=== PATIENT | male | born 1955 | race African-American/Black ===

== ENCOUNTER 2017-03-08 12:29 | Emergency (ER) | payer BC, OTHER ==
[2017-03-08 13:38] LABS: ADD MAN DIFF? NO
[2017-03-08 13:41] LABS: BASO # 0.1 x10^3/uL (0.0-0.2); BASO % 1 % (0-3); EOS # 0.4 x10^3/uL (0.0-0.7); EOS % 6 % (0-3); HEMATOCRIT 44.9 % (39.0-53.0); HEMOGLOBIN 15.3 g/dL (13.0-17.5); LYMPH % 30 % (24-48); MEAN CORPUSCULAR HEMOGLOBIN 27 pg (25-35); MEAN CORPUSCULAR HGB CONC 34 g/dL (31-37); MEAN CORPUSCULAR VOLUME 78 fL (79-100); MONO # 0.6 x10^3/uL (0.0-1.1); MONO % 10 % (0-9); NEUT # 3.5 x10^3uL (1.8-7.7); NEUT % 53 % (31-73); PLATELET COUNT 285 x10^3/uL (140-400); RED BLOOD COUNT 5.76 x10^6/uL (4.30-5.70); WHITE BLOOD COUNT 6.6 x10^3/uL (4.0-11.0)
[2017-03-08 13:42] LABS: BILIRUBIN,URINE NEGATIVE (NEG); CLARITY,URINE CLEAR; COLOR,URINE YELLOW; GLUCOSE,URINE NEGATIVE (NEG); NITRITE,URINE NEGATIVE (NEG); PH,URINE 6.5; PROTEIN,URINE NEGATIVE (NEG-TRACE); UROBILINOGEN,URINE 0.2 mg/dL (0.2 mg/dL)
[2017-03-08 13:52] LABS: RBC,URINE 0 /HPF (0-2)
[2017-03-08 13:53] LABS: BACTERIA,URINE 0 /HPF (0-FEW); WBC,URINE 0 /HPF (0-4)
[2017-03-08 13:54] LABS: ANION GAP 9 (6-14); BLOOD UREA NITROGEN 8 mg/dL (8-26); BUN/CREATININE RATIO 10 (6-20); CALCIUM 8.8 mg/dL (8.5-10.1); CARBON DIOXIDE 29 mmol/L (21-32); CHLORIDE 101 mmol/L (98-107); CREATININE 0.8 mg/dL (0.7-1.3); GFR 119.7; GLUCOSE 100 mg/dL (70-99); POTASSIUM 3.5 mmol/L (3.5-5.1); SODIUM 139 mmol/L (136-145)
[2017-03-08 13:59] LABS: ALBUMIN 4.1 g/dL (3.4-5.0); TOTAL PROTEIN 8.3 g/dL (6.4-8.2)
[2017-03-08 14:00] LABS: ALK PHOS 135 U/L (46-116); ALT (SGPT) 21 U/L (16-63); AST (SGOT) 16 U/L (15-37); LIPASE 183 U/L (73-393); TOTAL BILIRUBIN 0.6 mg/dL (0.2-1.0)
[2017-03-08] MEDS: MORPHINE SULFATE 4 MG/ML DISP.SYRIN. IV ×2 (14:11)
== END 2017-03-08 15:27 | disposition home or self-care (01) ==
LOC: ER 12:29
DX: N40.1 Benign prostatic hyperplasia with lower urinary tract symptoms (principal); R35.0 Frequency of micturition; J45.909 Unspecified asthma, uncomplicated; E78.00 Pure hypercholesterolemia, unspecified; I10 Essential (primary) hypertension; G89.29 Other chronic pain; Z87.01 Personal history of pneumonia (recurrent); Z88.0 Allergy status to penicillin; Z88.2 Allergy status to sulfonamides; Z88.8 Allergy status to other drugs, medicaments and biological substances; Z88.5 Allergy status to narcotic agent
CPT/HCPCS: 36415; 74176; 80053; 81001; 83690; 85025; 96374; 99285-25; J2270

== ENCOUNTER → 2017-03-17 | Outpatient (CLI) | payer BC ==
[2017-03-17] MEDS: IOHEXOL 300 MG/ML 100ML VIAL. IV ×2 (12:45)
[2017-03-17] MEDS: IOHEXOL 240 MG/ML 50ML VIAL. PO ×2 (12:45)
== END | disposition home or self-care (01) ==
LOC: CT 11:53
DX: N41.2 Abscess of prostate (principal); M47.816 Spondylosis without myelopathy or radiculopathy, lumbar region; N40.0 Benign prostatic hyperplasia without lower urinary tract symptoms; K57.30 Diverticulosis of large intestine without perforation or abscess without bleeding; I10 Essential (primary) hypertension; I25.10 Atherosclerotic heart disease of native coronary artery without angina pectoris
CPT/HCPCS: 74177; Q9966; Q9967

== ENCOUNTER 2017-08-10 15:51 | Emergency (ER) | payer BC ==
[2017-08-10] MEDS: methylPREDNISolone SOD SUCC PF 125 MG/2 ML VIAL. IM (17:56)
== END 2017-08-10 18:00 | disposition home or self-care (01) ==
LOC: ER 18:00
DX: M25.462 Effusion, left knee (principal); R21 Rash and other nonspecific skin eruption; J45.909 Unspecified asthma, uncomplicated; E78.00 Pure hypercholesterolemia, unspecified; I10 Essential (primary) hypertension; Z79.899 Other long term (current) drug therapy; Z88.0 Allergy status to penicillin; Z88.2 Allergy status to sulfonamides; Z88.5 Allergy status to narcotic agent; Z88.8 Allergy status to other drugs, medicaments and biological substances
CPT/HCPCS: 73562; 93971; 96372; 99284; J2930

== ENCOUNTER → 2017-08-14 | Outpatient (CLI) | payer BC | END | disposition home or self-care (01) | LOC: KCIC MRI 14:17 | DX: S83.241A Other tear of medial meniscus, current injury, right knee, initial encounter (principal); M17.11 Unilateral primary osteoarthritis, right knee; M22.41 Chondromalacia patellae, right knee; M25.461 Effusion, right knee; M71.21 Synovial cyst of popliteal space [Baker], right knee; I10 Essential (primary) hypertension; E78.5 Hyperlipidemia, unspecified; E78.00 Pure hypercholesterolemia, unspecified; J45.909 Unspecified asthma, uncomplicated; X58.XXXA Exposure to other specified factors, initial encounter; Y93.89 Activity, other specified; Y92.89 Other specified places as the place of occurrence of the external cause; Y99.8 Other external cause status | CPT/HCPCS: 73721 ==

== ENCOUNTER 2018-07-14 15:22 | Inpatient (IN) | payer BC ==
[~2018-07-14] VITALS: Ht 177.8 cm; Wt 91.6 kg
[~2018-07-14 15:22] MED LIST: ALBU2.5V8 IH; AMLO5TAB4 PO; ASPI81TA59 PO; BIOT25006 PO; BYSTOLIC10 MG PO; CIPR500T94 PO; CLIN300C3 PO; CYPR4TAB31 PO; DIPH25CA58 PO; FAMO40TA57 PO; HYDR-2761 PO; HYDR-2765 PO; HYDR-3164 PO; LEVO500T59 PO; OXYC1TAB19 PO; PRED-220 PO; PRED20TA PO; RANI150T2 PO; SIMV40TA3 PO; TRAM50TA PO
[2018-07-14] MEDS ORDERED: IV NORMAL SALINE 1000ML BAG 1,000 ML IV ONE (15:45)
[2018-07-14 15:51] LABS: BASO % 0 % (0-3); EOS # 0.7 x10^3/uL (0.0-0.7); EOS % 11 % (0-3); HEMATOCRIT 42.4 % (39.0-53.0); HEMOGLOBIN 14.5 g/dL (13.0-17.5); LYMPH # 2.2 x10^3/uL (1.0-4.8); LYMPH % 35 % (24-48); MEAN CORPUSCULAR HEMOGLOBIN 26 pg (25-35); MEAN CORPUSCULAR HGB CONC 34 g/dL (31-37); MEAN CORPUSCULAR VOLUME 76 fL (79-100); MONO # 0.7 x10^3/uL (0.0-1.1); MONO % 11 % (0-9); NEUT # 2.7 x10^3uL (1.8-7.7); NEUT % 42 % (31-73); PLATELET COUNT 345 x10^3/uL (140-400); RED BLOOD COUNT 5.57 x10^6/uL (4.30-5.70); RED CELL DISTRIBUTION WIDTH 15.1 % (11.5-14.5); WHITE BLOOD COUNT 6.4 x10^3/uL (4.0-11.0)
--- NOTE | 2018-07-14 15:55 | EKG ---
[facility] [address] [place] [address] Test Date: 2018-07-14 Test Time: 15:29:46 Pat Name: JAYASHREE JONES Department: Room: Gender: M Ssis Ssrs Developer: : [id number] Requested By: JOSH LARA Order Number: [id number] Reading MD: Measurements Intervals Midnight Rate: 85 P: 41 [place]: 188 QRS: -13 QRSD: 92 T: 36 QT: 410 QTc: 488 Interpretive Statements SINUS RHYTHM LEFTWARD AXIS PROLONGED QT NO SPECIFIC ECG ABNORMALITIES RI6.01 Unconfirmed report No previous ECG available for comparison
--- NOTE | 2018-07-14 16:15 | RAD ---
Chest, PA and Lateral: Technique: PA and lateral views of the chest were obtained. History: Chest tightness. Comparison: None. Findings: The heart size grossly appears unremarkable. Small right apical pneumothorax is evident. Mild right lung base airspace opacities likely atelectasis or infiltrate. Mild elevation of the right hemidiaphragm. IMPRESSION: 1. Small right apical pneumothorax. 2. Mild right lung base airspace opacities likely atelectasis or infiltrate. Helen Weaver in ER was informed at time of dictation. Electronically signed by: Jason Dexter MD (07/14/2018 4:13 PM) [place] [id number]
[2018-07-14 16:19] LABS: CREATININE 0.9 mg/dL (0.7-1.3); GFR 103.8; POTASSIUM 3.1 mmol/L (3.5-5.1)
[2018-07-14 16:25] LABS: ALBUMIN 3.8 g/dL (3.4-5.0); MAGNESIUM 2.2 mg/dL (1.8-2.4); TOTAL BILIRUBIN 0.6 mg/dL (0.2-1.0); TOTAL PROTEIN 7.7 g/dL (6.4-8.2)
[2018-07-14] MEDS ORDERED: CONTRAST GIVEN. MC PRN (16:45)
[2018-07-14] MEDS ORDERED: IOHEXOL 350 MG/ML 100 ML VIAL. IV ONE (17:00)
--- NOTE | 2018-07-14 17:11 | RAD ---
CT ANGIOGRAPHY CHEST Indication: Chest tightness. Left chest pain. Fatigue. Shortness of breath. Symptoms for 2 days. . Technique: After intravenous contrast administration, CT imaging was performed of the chest. MIP reconstructions were obtained. Exposure: One or more of the following individualized dose reduction techniques were utilized for this examination: 1. Automated exposure control 2. Adjustment of the mA and/or kV according to patient size 3. Use of iterative reconstruction technique. No evidence of pulmonary embolism. The thoracic ascending aorta is mildly ectatic at 4 cm transverse. No evidence of gross aortic aneurysm or dissection. The proximal great vessels appear patent. No pericardial effusion. No pleural effusion. Visualized thyroid demonstrates no mass. No significant lymph node enlargement. Tiny subpleural nodule left lung base measures only 3 mm. No evidence of consolidating infiltrate. Mild linear markings in the right base atelectasis or fibrosis. There is extensive elevation right anterior hemidiaphragm and lung base. Most of the right lobe of liver is within the chest. Scans to the upper abdomen are limited by the technique. There is a small 17 mm round structure located just posterior to the stomach. This appears to be separate from the adrenal gland. This may represent just a component of the stomach rather than a separate mass. IMPRESSION: 1. No evidence of pulmonary embolism. 2. Elevation or herniation of the right anterior hemidiaphragm, with most of the right lobe of liver located within the lower chest. 3. Small round structure in the left upper quadrant, probably just represents posterior gastric tissue, particularly as seen on the coronal and sagittal reconstructions. This appears to be separate from the adrenal gland rather than an adrenal mass. Electronically signed by: Vern Gonzalez MD (07/14/2018 5:07 PM) [facility]
--- NOTE | 2018-07-14 17:46 | PHYS DOC ---
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 Pt reports symptoms have been irregular however today symptoms worsened so he came to the ER. Patient states he has less appetite/fluid intake. He reports reg. BMs but states he may have less urine outpt d/t less fluids. Pt denies cough, fever, shortness of air, or swelling. 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 He reports his brother at the age of 5959 years old due to heart attack and paternal/maternal uncles have had MIs. Patient denies any recent injury or falls. Patient took aspirin 325 mg today. Patient reports he drove to [place] on and did have episode of feeling lightheaded while there. Patient states his symptoms started after returning from that trip. Patient denies any flu or cold-like illness. He denies recent hospitalization. Review of Systems Review of Systems Constitutional: Denies fever or chills. Reports gen. fatigue/weakness Eyes: Denies change in visual acuity, redness, or eye pain [] HENT: Denies nasal congestion or sore throat [] Respiratory: Denies cough or shortness of breath [] Cardiovascular: Reports lt side chest tightness/pain- reports feeling heart is having irregular beat GI: Denies abdominal pain, nausea, vomiting, bloody stools or diarrhea. Reports decreased appetite : Denies dysuria or hematuria [] Musculoskeletal: Denies back/neck pain or joint pain [] Integument: Denies rash, swelling or skin lesions [] Neurologic: Denies headache, focal weakness or sensory changes. Reports feeling light headed intermittently Endocrine: Denies polyuria or polydipsia [] All other systems were reviewed and found to be within normal limits, except as documented in this note. Current Medications Current Medications Current Medications Medications (Trade) Dose Ordered Sig/Cj Start Time Stop Time Status Last Admin Dose Admin Sodium Chloride 1,000 ml @ 1,000 mls/hr 1X ONCE 07/14/18 15:45 07/14/18 16:44 DC 07/14/18 15:55 1,000 MLS/HR Allergies Allergies Allergies Coded Allergies Type Severity Reaction Last Updated Verified lisinopril Allergy Severe angioedema 10/06/14 Yes Penicillins Allergy Intermediate 10/06/14 Yes Sulfa (Sulfonamide Antibiotics) Allergy Intermediate 10/06/14 Yes codeine Allergy Intermediate rash 10/06/14 Yes Physical Exam Physical Exam Constitutional: Well developed, well nourished, no acute distress, non-toxic appearance. Fatigued appearance. HENT: Normocephalic, atraumatic, oropharynx moist, no oral exudates, nose nor mal. [] Eyes: Pupils equal, no nystagmus, conjunctiva normal, no discharge. [] Neck: Normal range of motion, no tenderness, supple, no stridor. [] Cardiovascular: Heart rate regular rhythm, no murmur [] Lungs & Thorax: Bilateral breath sounds clear to auscultation- resp. equal/nonlabored. No chest tenderness/crepitus Abdomen: Bowel sounds normal, soft, no tenderness/distention, no masses, no pulsatile masses. [] Skin: Warm, dry, no erythema, no rash. [] Back: No tenderness, no CVA tenderness. Extremities: No tenderness, no cyanosis, no clubbing, ROM intact, no edema. 2+ bilat. radial/posterior tibial and dorsalis pedis Neurologic: Alert and oriented X 3, normal motor function, normal sensory funct ion, no focal deficits noted. [] Psychologic: Affect normal, judgement normal, mood normal. [] Current Patient Data Vital Signs Vital Signs Date Time Temp Pulse Resp B/P (MAP) Pulse Ox O2 Delivery O2 Flow Rate FiO2 07/14/18 15:32 80 18 138/87 (104) 96 Room Air 07/14/18 15:22 98.1 98.1 Lab Values Laboratory Tests Test 07/14/18 15:36 White Blood Count 6.4 x10^3/uL (4.0-11.0) Red Blood Count 5.57 x10^6/uL (4.30-5.70) Hemoglobin 14.5 g/dL (13.0-17.5) Hematocrit 42.4 % (39.0-53.0) Mean Corpuscular Volume 76 fL (79-100) L Mean Corpuscular Hemoglobin 26 pg (25-35) Mean Corpuscular Hemoglobin Concent 34 g/dL (31-37) Red Cell Distribution Width 15.1 % (11.5-14.5) H Platelet Count 345 x10^3/uL (140-400) Neutrophils (%) (Auto) 42 % (31-73) Lymphocytes (%) (Auto) 35 % (24-48) Monocytes (%) (Auto) 11 % (0-9) H Eosinophils (%) (Auto) 11 % (0-3) H Basophils (%) (Auto) 0 % (0-3) Neutrophils # (Auto) 2.7 x10^3uL (1.8-7.7) Lymphocytes # (Auto) 2.2 x10^3/uL (1.0-4.8) Monocytes # (Auto) 0.7 x10^3/uL (0.0-1.1) Eosinophils # (Auto) 0.7 x10^3/uL (0.0-0.7) Basophils # (Auto) 0.0 x10^3/uL (0.0-0.2) Sodium Level 140 mmol/L (136-145) Potassium Level 3.1 mmol/L (3.5-5.1) L Chloride Level 102 mmol/L (98-107) Carbon Dioxide Level 28 mmol/L (21-32) Anion Gap 10 (6-14) Blood Urea Nitrogen 11 mg/dL (8-26) Creatinine 0.9 mg/dL (0.7-1.3) Estimated GFR (Cockcroft-Gault) 103.8 BUN/Creatinine Ratio 12 (6-20) Glucose Level 98 mg/dL (70-99) Calcium Level 9.0 mg/dL (8.5-10.1) Magnesium Level 2.2 mg/dL (1.8-2.4) Total Bilirubin 0.6 mg/dL (0.2-1.0) Aspartate Amino Transferase (AST) 16 U/L (15-37) Alanine Aminotransferase (ALT) 17 U/L (16-63) Alkaline Phosphatase 120 U/L (46-116) H Troponin I Quantitative < 0.017 ng/mL (0.000-0.055) MY-Zhf-[id number]-Type Natriuretic Peptide 58 pg/mL (0-124) Total Protein 7.7 g/dL (6.4-8.2) Albumin 3.8 g/dL (3.4-5.0) Albumin/Globulin Ratio 1.0 (1.0-1.7) Laboratory Tests 07/14/18 15:36 Laboratory Tests 07/14/18 15:36 EKG EKG EKG obtained 07/14/18 at [address] Maguire Sinus rhythm Ltward axis Prolonged QT Rate 85 No STEMI Radiology/Procedures Radiology/Procedures PROCEDURE: CHEST PA & LATERAL Chest, PA and Lateral: Technique: PA and lateral views of the chest were obtained. History: Chest tightness. Comparison: None. Findings: The heart size grossly appears unremarkable. Small right apical pneumothorax is evident. Mild right lung base airspace opacities likely atelectasis or infiltrate. Mild elevation of the right hemidiaphragm. IMPRESSION: 1. Small right apical pneumothorax. 2. Mild right lung base airspace opacities likely atelectasis or infiltrate. Helen Weaver in ER was informed at time of dictation. Electronically signed by: Jason Dexter MD (07/14/2018 4:13 PM) [place] [id number] DICTATED and SIGNED BY: JASON DEXTER MD DATE: 07/14/18 1613 PROCEDURE: CT ANGIOGRAPHY CHEST CT ANGIOGRAPHY CHEST Indication: Chest tightness. Left chest pain. Fatigue. Shortness of breath. Symptoms for 2 days. . Technique: After intravenous contrast administration, CT imaging was performed of the chest. MIP reconstructions were obtained. Exposure: One or more of the following individualized dose reduction techniques were utilized for this examination: 1. Automated exposure control 2. Adjustment of the mA and/or kV according to patient size 3. Use of iterative reconstruction technique. No evidence of pulmonary embolism. The thoracic ascending aorta is mildly ectatic at 4 cm transverse. No evidence of gross aortic aneurysm or dissection. The proximal great vessels appear patent. No pericardial effusion. No pleural effusion. Visualized thyroid demonstrates no mass. No significant lymph node enlargement. Tiny subpleural nodule left lung base measures only 3 mm. No evidence of consolidating infiltrate. Mild linear markings in the right base atelectasis or fibrosis. There is extensive elevation right anterior hemidiaphragm and lung base. Most of the right lobe of liver is within the chest. Scans to the upper abdomen are limited by the technique. There is a small 17 mm round structure located just posterior to the stomach. This appears to be separate from the adrenal gland. This may represent just a component of the stomach rather than a separate mass. IMPRESSION: 1. No evidence of pulmonary embolism. 2. Elevation or herniation of the right anterior hemidiaphragm, with most of the right lobe of liver located within the lower chest. 3. Small round structure in the left upper quadrant, probably just represents posterior gastric tissue, particularly as seen on the coronal and sagittal reconstructions. This appears to be separate from the adrenal gland rather than an adrenal mass. Electronically signed by: Vern Gonzalez MD (07/14/2018 5:07 PM) [facility] DICTATED and SIGNED BY: VERN GONZALEZ MD DATE: 07/14/18 2592 Course & Med Decision Making Course & Med Decision Making Pertinent Labs and Imaging studies reviewed. (See chart for details) 1545: Spoke with Dr. Ryan, hospitalist following exam w/pt and discussed pt's case and admit plan. Discussed plans to consult cardiology with admit orders. With patient's recent travel will obtain CTA chest. Dr. Ryan aware labs and imaging pending. 1610: Radiologist called and advised of possible small right apical pneumothorax. Patient had denied any recent trauma or injury. Patient had good bilateral lung sounds on exam. This finding was discussed with Dr. Maguire. Pt's CTA chest is pending. 1740: Pt's Venus arrived bedside and so test results were discussed with patient and his . Discussed CT finding of elevated diaphragm on the right with liver in chest. Pt denies any prior abd. trauma and is denying any abd pain. CT was negative for PE and no pneumothorax reported. Patient CT and tests were reviewed by Dr. Maguire- with liver findings he wanted consult placed with patient's admission for general surgery. Will consult Dr. Mi. Patient's EKG showed no acute ST elevation or STEMI and troponin was negative. Pt's potassium on labs was 3.1 so will order oral replacement. With patient's symptoms worsening today Will add serial cardiac enzymes to admission orders. Patient had taken 325 mg aspirin today. Patient has remained stable while in the ER denying any acute change in condition. Admission plan had been discussed d uring initial exam and patient was agreeable with plan. Heart score 4. Dragon Disclaimer Dragon Disclaimer This electronic medical record was generated, in whole or in part, using a voice recognition dictation system. Departure Departure Impression: Primary Impression: Chest pain Additional Impression: Fatigue Disposition: ADMITTED INPATIENT (Dr. Ryan, hospitalist) Condition: STABLE Referrals: SANDRA NELSON MD (PCP) Problem Qualifiers HELEN LARA APRN Jul 14, 2018 17:45
[2018-07-14 18:05] VITALS: BP 136/89
[2018-07-14] MEDS ORDERED: POTASSIUM CHLORIDE 20 MEQ TABLET.ER. PO ONE ×2 (18:30)
[2018-07-14] MEDS: MORPHINE SULFATE 2 MG/ML VIAL. IV PRN ×2 (18:43→21:18)
--- NOTE | 2018-07-14 19:00 | NUR ---
Patient arrived to room 204 via wheelchair, patient alert and oriented with at bedside, patient complaining of 7/10 chest "tightness," Dr. Ryan and orders received. Patient oriented to room, call light in reach. Will give report to BULMARO Kay to complete admission.
[2018-07-14 19:40] VITALS: BP 120/84
[2018-07-14] MEDS ORDERED: NITROGLYCERIN SUBLINGUAL 0.4 MG BOTTLE OF 25. SL PRN (19:45)
[2018-07-14] MEDS ORDERED: HYDR-2759 PO (20:27)
[2018-07-14] MEDS ORDERED: AMLO10TA8 PO (20:27)
[2018-07-14] MEDS ORDERED: TRIA1CAP3 PO (20:27)
[2018-07-14] MEDS ORDERED: HYDR25TA PO (20:27)
[2018-07-14] MEDS ORDERED: ASPI325T8 PO (20:27)
[2018-07-14] MEDS ORDERED: FEXO180T16 PO (20:27)
[2018-07-14] MEDS ORDERED: ATOR20TA58 PO (20:27)
[2018-07-14] MEDS ORDERED: HYDROcodone/APAP 5/325MG 1 TAB TABLET PO PRN (20:30)
[2018-07-14] MEDS ORDERED: ATORVASTATIN CALCIUM 20 MG TABLET PO SCH (21:00)
[2018-07-14] MEDS: hydrOXYzine 25 MG TABLET PO SCH (21:15)
[2018-07-14] MEDS: ENOXAPARIN 40 MG/0.4 ML SYRINGE. SQ SCH (21:15)
[2018-07-14 22:36] VITALS: BP 114/80
--- NOTE | 2018-07-14 23:05 | HP ---
ADMIT DATE: 07/14/2018 CHIEF COMPLAINT: Chest pressure. HISTORY OF PRESENT ILLNESS: The patient is a pleasant 63-year-old male who presents with chest pain. It has been occurring for 3 days. It is worse with moving. He has some associated generalized fatigue on the left side, pressure like, states his heart beats has been irregular at times. 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 Cardiac disease runs strong in his family. He has got brothers and uncles and I think maybe his dad as well that had coronary disease. Some of them from it. I discussed the case with ER physician. We are going to admit the patient and give him some Lovenox and consult Dr. Gregory. I called Dr. Gregory. He is aware of the case as well. PAST MEDICAL HISTORY: Asthma, hypertension, hyperlipidemia, pneumonia, previous coronary disease, 50% lesion, but he did not get any stents at that time that was 20 years ago. Mesenteric panniculitis, umbilical hernia, neck fusion, finger amputations, cardiac catheterization. ALLERGIES: PENICILLIN, SULFA, LISINOPRIL AND CODEINE. FAMILY HISTORY: Strong history of coronary disease. SOCIAL HISTORY: Does not drink, smoke or take drugs. MEDICATIONS: Reviewed, please refer to the MRAD. REVIEW OF SYSTEMS: GENERAL: No history of weight change, weakness or fevers. SKIN: No bruising, hair changes or rashes. EYES: No blurred, double or loss of vision. NOSE AND THROAT: No history of nosebleeds, hoarseness or sore throat. HEART: He complains of chest pressure. LUNGS: Denies cough, hemoptysis, wheezing or shortness of breath. GASTROINTESTINAL: Denies changes in appetite, nausea, vomiting, diarrhea or constipation. GENITOURINARY: No history of frequency, urgency, hesitancy or nocturia. NEUROLOGIC: Denies history of numbness, tingling, tremor or weakness. PSYCHIATRIC: No history of panic, anxiety or depression. ENDOCRINE: No history of heat or cold intolerance, polyuria or polydipsia. EXTREMITIES: Denies muscle weakness, joint pain, pain on walking or stiffness. PHYSICAL EXAMINATION: VITAL SIGNS: Temperature afebrile, pulse 92, respirations 18, blood pressure 120/84. GENERAL: He is alert, cooperative, complaining of chest pain. HEART: Normal S1, S2. LUNGS: Clear. ABDOMEN: Soft. EXTREMITIES: No edema. The left hand is partially amputated from an accident at work many years ago in the 70s. ENDOCRINE: No thyromegaly. LYMPHATICS: No cervical nodes. HEMATOPOIETIC: No bruising noted. PSYCHIATRIC: He is a little anxious. LABORATORY DATA: CT of the chest was negative for pulmonary embolism. There is an elevation of the right hemidiaphragm with most of the right lobe of the liver located within the lower chest wall. Chest x-ray: Small apical pneumothorax. Mid right lung airspace opacities, likely an infiltrate or atelectasis. Troponin is 0. Hematology is normal. Potassium is low at 3.1. ASSESSMENT AND PLAN: Chest pain, rule out coronary disease with incidental finding of right lobe of the liver in the chest wall and hypokalemia and small apical pneumothorax, possible pneumonia. The patient has been admitted. We will consult Cardiology. We will go ahead and consult Pulmonary as well. Serial enzymes, serial EKGs, asked the nurse to go ahead and give him a dose of Lovenox. I called Dr. Gregory. Frequent labs, cardiac monitoring, serial enzymes, serial EKGs. PROGNOSIS: Guarded. REILLY CORTES DO DR: ARON/carlene JOB#: [id number] / [id number]
[2018-07-15] VITALS (19 sets, daily range): BP systolic 96–131; BP diastolic 61–85
[2018-07-15 05:35] LABS: BASO # 0.1 x10^3/uL (0.0-0.2); BASO % 1 % (0-3); EOS # 0.7 x10^3/uL (0.0-0.7); EOS % 10 % (0-3); HEMATOCRIT 38.6 % (39.0-53.0); HEMOGLOBIN 13.2 g/dL (13.0-17.5); LYMPH % 28 % (24-48); MEAN CORPUSCULAR HEMOGLOBIN 26 pg (25-35); MEAN CORPUSCULAR HGB CONC 34 g/dL (31-37); MEAN CORPUSCULAR VOLUME 77 fL (79-100); MONO # 0.6 x10^3/uL (0.0-1.1); MONO % 9 % (0-9); NEUT # 3.8 x10^3uL (1.8-7.7); NEUT % 53 % (31-73); PLATELET COUNT 318 x10^3/uL (140-400); RED BLOOD COUNT 4.99 x10^6/uL (4.30-5.70); WHITE BLOOD COUNT 7.2 x10^3/uL (4.0-11.0)
[2018-07-15 05:55] LABS: ALBUMIN 3.3 g/dL (3.4-5.0); ALBUMIN/GLOBULIN RATIO 1.1 (1.0-1.7); CALCIUM 8.9 mg/dL (8.5-10.1); CREATININE 0.8 mg/dL (0.7-1.3); GFR 118.9; POTASSIUM 3.3 mmol/L (3.5-5.1); TOTAL BILIRUBIN 0.7 mg/dL (0.2-1.0); TOTAL PROTEIN 6.4 g/dL (6.4-8.2)
[2018-07-15] MEDS ORDERED: POTASSIUM CHLORIDE 20 MEQ TABLET.ER. PO ONE (08:00)
[2018-07-15] MEDS: ASPIRIN 325 MG TABLET PO SCH (08:11)
[2018-07-15] MEDS: ATORVASTATIN CALCIUM 20 MG TABLET PO SCH (08:11)
[2018-07-15] MEDS: TRIAMTERENE/HCTZ 37.5/25MG TABLET. PO SCH (08:11)
[2018-07-15] MEDS: amLODIPine BESYLATE 10 MG TABLET PO SCH (08:12)
[2018-07-15] MEDS: hydrOXYzine 25 MG TABLET PO SCH ×4 (08:12→21:13)
[2018-07-15] MEDS: MORPHINE SULFATE 2 MG/ML VIAL. IV PRN ×5 (08:13→21:13)
[2018-07-15 08:20] LABS: CHOLESTEROL/HDL RATIO 3.5
[2018-07-15] MEDS: CETIRIZINE HCL 10 MG TABLET. PO SCH ×2 (09:00→12:53)
--- NOTE | 2018-07-15 09:14 | PDOC2 ---
GI CONSULT Reason For Consult: Abd pain, abnormal CT HPI: HPI: 63 y/o male admitted through ER. For 3-4 days, has had some left-sided chest "grabbing" and "tightness." Intermittent - noted while at a wedding and while exercising. Associated w/ irregular racing heart, lightheadedness, and fatigue. Also notes his "health watch" for work alerted him that his heart was beating irregularly. Also has some LUQ/left flank pain ("just a pain") that has been constant. Feels bloated w/ decreased appetite. 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 Assumes weight loss. Hasn't stooled in a couple days. No reflux/heartburn, dysphagia, n/v, diarrhea, or bleeding. EGD for epigastric pain and abnormal CT (suggesting paraduodenal or pancreatic inflammation) by Dr. Emma Norwood in 11/2007: chronic gastritis (negative for H. pylori), small gastric diverticulum, minimally prominent vessels in gastric fun dus. Colonoscopy at that time for lower abd pain and chronic constipation showed diverticulosis and external hemorrhoids. No GB, liver, or PUD history. He remembers being told he might have had pancreatitis. 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 Also takes ASA. PMH: PMH: CAD, HTN, asthma, pneumonia, [place] (improved w/ starr loss), HLD, gastric diverticulum, colonic diverticulosis, hemorrhoids, mesenteric panniculitis cervical fusion, TURP, umbilical hernia repair, expl lap w/ biopsy, traumatic amputation of left fingers, heart cath FH: Family History: Cancer (mother - "bowel," brother - liver), Other (father and brother - heart attacks) Social History: Smoke: No ALCOHOL: none (occasionally in the past, now none) Drugs: None ROS: GEN: +fatigue HEENT: Denies blurred vision, sore throat CV: +chest pain RESP: Denies shortness of air, cough GI: Per HPI : Denies hematuria, dysuria ENDO: +weight loss NEURO: +dizziness MSK: Denies weakness, joint pain/swelling SKIN: Denies jaundice, pruritus Vitals: Vitals: Vital Signs Date Time Temp Pulse Resp B/P (MAP) Pulse Ox O2 Delivery O2 Flow Rate FiO2 07/15/18 08:13 14 98 Room Air 07/15/18 08:12 63 127/78 07/15/18 07:25 97.8 97.8 Labs: Labs: Laboratory Tests Test 07/14/18 15:36 07/14/18 21:15 07/15/18 04:00 White Blood Count 6.4 x10^3/uL (4.0-11.0) 7.2 x10^3/uL (4.0-11.0) Red Blood Count 5.57 x10^6/uL (4.30-5.70) 4.99 x10^6/uL (4.30-5.70) Hemoglobin 14.5 g/dL (13.0-17.5) 13.2 g/dL (13.0-17.5) Hematocrit 42.4 % (39.0-53.0) 38.6 % (39.0-53.0) Mean Corpuscular Volume 76 fL (79-100) 77 fL (79-100) Mean Corpuscular Hemoglobin 26 pg (25-35) 26 pg (25-35) Mean Corpuscular Hemoglobin Concent 34 g/dL (31-37) 34 g/dL (31-37) Red Cell Distribution Width 15.1 % (11.5-14.5) 15.0 % (11.5-14.5) Platelet Count 345 x10^3/uL (140-400) 318 x10^3/uL (140-400) Neutrophils (%) (Auto) 42 % (31-73) 53 % (31-73) Lymphocytes (%) (Auto) 35 % (24-48) 28 % (24-48) Monocytes (%) (Auto) 11 % (0-9) 9 % (0-9) Eosinophils (%) (Auto) 11 % (0-3) 10 % (0-3) Basophils (%) (Auto) 0 % (0-3) 1 % (0-3) Neutrophils # (Auto) 2.7 x10^3uL (1.8-7.7) 3.8 x10^3uL (1.8-7.7) Lymphocytes # (Auto) 2.2 x10^3/uL (1.0-4.8) 2.0 x10^3/uL (1.0-4.8) Monocytes # (Auto) 0.7 x10^3/uL (0.0-1.1) 0.6 x10^3/uL (0.0-1.1) Eosinophils # (Auto) 0.7 x10^3/uL (0.0-0.7) 0.7 x10^3/uL (0.0-0.7) Basophils # (Auto) 0.0 x10^3/uL (0.0-0.2) 0.1 x10^3/uL (0.0-0.2) Sodium Level 140 mmol/L (136-145) 141 mmol/L (136-145) Potassium Level 3.1 mmol/L (3.5-5.1) 3.3 mmol/L (3.5-5.1) Chloride Level 102 mmol/L (98-107) 105 mmol/L (98-107) Carbon Dioxide Level 28 mmol/L (21-32) 26 mmol/L (21-32) Anion Gap 10 (6-14) 10 (6-14) Blood Urea Nitrogen 11 mg/dL (8-26) 8 mg/dL (8-26) Creatinine 0.9 mg/dL (0.7-1.3) 0.8 mg/dL (0.7-1.3) Estimated GFR (Cockcroft-Gault) 103.8 118.9 BUN/Creatinine Ratio 12 (6-20) 10 (6-20) Glucose Level 98 mg/dL (70-99) 87 mg/dL (70-99) Calcium Level 9.0 mg/dL (8.5-10.1) 8.9 mg/dL (8.5-10.1) Magnesium Level 2.2 mg/dL (1.8-2.4) Total Bilirubin 0.6 mg/dL (0.2-1.0) 0.7 mg/dL (0.2-1.0) Aspartate Amino Transf (AST/SGOT) 16 U/L (15-37) 18 U/L (15-37) Alanine Aminotransferase (ALT/SGPT) 17 U/L (16-63) 15 U/L (16-63) Alkaline Phosphatase 120 U/L (46-116) 101 U/L (46-116) Troponin I Quantitative < 0.017 ng/mL (0.000-0.055) < 0.017 ng/mL (0.000-0.055) < 0.017 ng/mL (0.000-0.055) OA-Lnn-T-Type Natriuretic Peptide 58 pg/mL (0-124) Total Protein 7.7 g/dL (6.4-8.2) 6.4 g/dL (6.4-8.2) Albumin 3.8 g/dL (3.4-5.0) 3.3 g/dL (3.4-5.0) Albumin/Globulin Ratio 1.0 (1.0-1.7) 1.1 (1.0-1.7) Triglycerides Level 83 mg/dL (0-150) Cholesterol Level 160 mg/dL (0-200) LDL Cholesterol, Calculated 97 mg/dL (0-100) VLDL Cholesterol, Calculated 17 mg/dL (0-40) Non-HDL Cholesterol Calculated 114 mg/dL (0-129) HDL Cholesterol 46 mg/dL (40-60) Cholesterol/HDL Ratio 3.5 Thyroid Stimulating Hormone (TSH) 1.234 uIU/mL (0.358-3.74) Allergies: Coded Allergies: lisinopril (Verified Allergy, Severe, angioedema, 10/06/14) Penicillins (Verified Allergy, Intermediate, 10/06/14) Sulfa (Sulfonamide Antibiotics) (Verified Allergy, Intermediate, 10/06/14) codeine (Verified Allergy, Intermediate, rash, 10/06/14) Medications: Current Medications Medications (Trade) Dose Ordered Sig/Cj Route PRN Reason Start Time Stop Time Status Last Admin Dose Admin Sodium Chloride 1,000 ml @ 1,000 mls/hr 1X ONCE IV 07/14/18 15:45 07/14/18 16:44 DC 07/14/18 15:55 Iohexol (Omnipaque 350 Mg/ml) 100 ml 1X ONCE IV 07/14/18 17:00 07/14/18 17:01 DC 07/14/18 16:52 Morphine Sulfate (Morphine Sulfate) 2 mg PRN Q2HR PRN IV PAIN 07/14/18 18:30 07/15/18 08:13 Potassium Chloride (Klor-Con) 40 meq 1X ONCE PO 07/14/18 18:30 07/14/18 18:37 DC 07/14/18 18:43 Enoxaparin Sodium (Lovenox 40mg Syringe) 40 mg Q24H SQ 07/14/18 21:00 07/14/18 21:15 Nitroglycerin (Nitrostat) 0.4 mg PRN Q5MIN PRN SL CHEST PAIN 07/14/18 19:45 07/14/18 19:45 Amlodipine Besylate (Norvasc) 10 mg DAILY PO 07/15/18 09:00 07/15/18 08:12 Aspirin (Ofelia Aspirin) 325 mg DAILY PO 07/15/18 09:00 07/15/18 08:11 Hydroxyzine HCl (Atarax) 25 mg QID PO 07/14/18 21:00 07/15/18 08:12 Triamterene/HCTZ (Maxzide 37.5/ 25mg) 1 tab DAILY PO 07/15/18 09:00 07/15/18 08:11 Atorvastatin Calcium (Lipitor) 20 mg DAILY08 PO 07/15/18 08:00 07/15/18 08:11 Potassium Chloride (Klor-Con) 40 meq 1X ONCE PO 07/15/18 08:00 07/15/18 08:06 DC 07/15/18 08:10 Imaging: Imaging: CXR 07/14/18 IMPRESSION: 1. Small right apical pneumothorax. 2. Mild right lung base airspace opacities likely atelectasis or infiltrate. Chest CTA IMPRESSION: 1. No evidence of pulmonary embolism. 2. Elevation or herniation of the right anterior hemidiaphragm, with most of the right lobe of liver located within the lower chest. 3. Small round structure in the left upper quadrant, probably just represents posterior gastric tissue, particularly as seen on the coronal and sagittal reconstructions. This appears to be separate from the adrenal gland rather than an adrenal mass. PE: GEN: NAD HEENT: Atraumatic, PERRL LUNGS: CTAB HEART: RRR, ABD: NABS, S/ND, LUQ discomfort wrapping to left flank EXTREMITY: No edema SKIN: No rashes, no jaundice NEURO/PSYCH: A & O 3 A/P: A/P: Left-sided cheat pain, irregular HR, lightheadedness, fatigue LUQ/flank pain, decreased appetite, bloating, ?constipation Microcytosis Abnormal CT - elevation of right anterior hemidiaphragm, small round structure LUQ H/o gastric diverticulum CRC screen - last colonoscopy in 2007 Diverticulosis, hemorrhoids H/o mesenteric panniculitis NSAID use -- CT findings likely related to known gastric diverticulum. Consider EGD when cleared by cardiology. Outpt screening colonoscopy. Check iron profile. Empiric PPI. Miralax. AMBER MCCALL Jul 15, 2018 09:14
[2018-07-15] MEDS ORDERED: methylPREDNISolone SOD SUCC PF 125 MG/2 ML VIAL. IV ONE (09:30)
[2018-07-15] MEDS ORDERED: diphenhydrAMINE 50 MG/ML VIAL IM ONE (09:30)
[2018-07-15] MEDS ORDERED: FAMOTIDINE 20 MG/2 ML VIAL IVP ONE (09:30)
[2018-07-15] MEDS ORDERED: LIDOCAINE 1% PF 2 ML VIAL. ONE (09:31)
[2018-07-15] MEDS ORDERED: IOHEXOL 300 MG/ML 100ML VIAL. ONE (09:32)
[2018-07-15] MEDS ORDERED: HEPARIN for ARTERIAL LINE 1,500 ML ONE (09:32)
[2018-07-15] MEDS ORDERED: MIDAZOLAM HCL/PF 5 MG/5 ML VIAL. ONE (09:38)
[2018-07-15] MEDS ORDERED: NITROGLYCERIN 200 MCG/2 ML SYRINGE FOR CATH/VASC LAB. ONE (09:38)
[2018-07-15] MEDS ORDERED: HEPARIN for IV BOLUS 10,000 UNIT/10 ML VIAL. ONE (09:38)
[2018-07-15] MEDS ORDERED: VERAPAMIL 5 MG/2 ML VIAL. ONE (09:38)
[2018-07-15] MEDS ORDERED: fentaNYL PF VIAL 100 MCG/2 ML VIAL ONE (09:38)
--- NOTE | 2018-07-15 09:39 | PDOC2 ---
DARÍO LUGO NATUROPATHIC PHYSICIAN 07/15/18 0939: CARDIAC CONSULT DATE OF CONSULT Date of Consult DATE: 07/15/18 TIME: 08:44 REASON FOR CONSULT Reason for Consult: Chest pain REFERRING PHYSICIAN Referring Physician: Meg SOURCE Source: Chart review, Patient HISTORY OF PRESENT ILLNESS HISTORY OF PRESENT ILLNESS This is a pleasant 63 yo male admitted for complains of chest pain, fatigue. Reports that he has been having intermittent left chest tightness that radiates to his left shoulder blade. Last week Geraldo he was exercising running in place and about 30 minutes he started having left chest tightness which lasted about 5-6 minutes and associated with palpitations, SOA and dizziness. The other day he was having the same symptoms but this time it was at rest. Over a week ago he was at [place] and he was also having the same symptoms. He has a fitbit which showed that his HR even after exercise was 130s. He had LHC [address] Abraham and told him that he has 40% blockage on 2 of his vessels. No nausea, no recent falls, injury or significant diaphoresis. No hx of VTE or arrhythmias. PAST MEDICAL HISTORY Cardiovascular: HTN, Hyperlipidemia Pulmonary: No pertinent hx CENTRAL NERVOUS SYSTEM: Other (concussion) GI: No pertinent hx Heme/Onc: No pertinent hx Hepatobiliary: No pertinent hx Psych: No pertinent hx Musculoskeletal: Osteoarthritis, Other (left hand traumatic amputation) Rheumatologic: No pertinent hx Infectious disease: No pertinent hx ENT: No pertinent hx Renal/: Benign prostatic enlarg. Endocrine: Diabetes (borderline), Other Dermatology: Eczema, Other (chronic urticaria) PAST SURGICAL HISTORY Past Surgical History: Hernia Repair (umbilical), Other (TURP; cervical fusions) FAMILY HISTORY Family History: Coronary Artery Disease (brother) SOCIAL HISTORY Smoke: No ALCOHOL: none Drugs: None Lives: with Family CURRENT MEDICATIONS CURRENT MEDICATIONS Current Medications Medications (Trade) Dose Ordered Sig/Cj Route PRN Reason Start Time Stop Time Status Last Admin Dose Admin Sodium Chloride 1,000 ml @ 1,000 mls/hr 1X ONCE IV 07/14/18 15:45 07/14/18 16:44 DC 07/14/18 15:55 Iohexol (Omnipaque 350 Mg/ml) 100 ml 1X ONCE IV 07/14/18 17:00 07/14/18 17:01 DC 07/14/18 16:52 Morphine Sulfate (Morphine Sulfate) 2 mg PRN Q2HR PRN IV PAIN 07/14/18 18:30 07/15/18 08:13 Potassium Chloride (Klor-Con) 40 meq 1X ONCE PO 07/14/18 18:30 07/14/18 18:37 DC 07/14/18 18:43 Enoxaparin Sodium (Lovenox 40mg Syringe) 40 mg Q24H SQ 07/14/18 21:00 07/14/18 21:15 Nitroglycerin (Nitrostat) 0.4 mg PRN Q5MIN PRN SL CHEST PAIN 07/14/18 19:45 07/14/18 19:45 Amlodipine Besylate (Norvasc) 10 mg DAILY PO 07/15/18 09:00 07/15/18 08:12 Aspirin (Ofelia Aspirin) 325 mg DAILY PO 07/15/18 09:00 07/15/18 08:11 Hydroxyzine HCl (Atarax) 25 mg QID PO 07/14/18 21:00 07/15/18 08:12 Triamterene/HCTZ (Maxzide 37.5/ 25mg) 1 tab DAILY PO 07/15/18 09:00 07/15/18 08:11 Atorvastatin Calcium (Lipitor) 20 mg DAILY08 PO 07/15/18 08:00 07/15/18 08:11 Potassium Chloride (Klor-Con) 40 meq 1X ONCE PO 07/15/18 08:00 07/15/18 08:06 DC 07/15/18 08:10 ALLERGIES ALLERGIES: Coded Allergies: lisinopril (Verified Allergy, Severe, angioedema, 10/06/14) Penicillins (Verified Allergy, Intermediate, 10/06/14) Sulfa (Sulfonamide Antibiotics) (Verified Allergy, Intermediate, 10/06/14) codeine (Verified Allergy, Intermediate, rash, 10/06/14) ROS Review of System 14 point ROS evaluated with pertinent positives noted per HPI PHYSICAL EXAM General: Alert, Oriented X3, Cooperative, No acute distress HEENT: Atraumatic, Mucous membr. moist/pink Lungs: Clear to auscultation, Normal air movement Heart: Regular rate (SR with PVCs), Normal S1, Normal S2, No murmurs Abdomen: Soft, Other (mild diffuse tenderenss with palpation) Extremities: No cyanosis, No edema Skin: No breakdown, No significant lesion Neuro: Normal speech, Sensation intact Psych/Mental Status: Mental status NL, Mood NL MUSCULOSKELETAL: Osteoarthritic changes both hands VITALS VITALS Vital Signs Date Time Temp Pulse Resp B/P (MAP) Pulse Ox O2 Delivery O2 Flow Rate FiO2 07/15/18 08:13 14 98 Room Air 07/15/18 08:12 63 127/78 07/15/18 07:25 97.8 97.8 LABS Lab: Laboratory Tests Test 07/14/18 15:36 07/14/18 21:15 07/15/18 04:00 White Blood Count 6.4 x10^3/uL (4.0-11.0) 7.2 x10^3/uL (4.0-11.0) Red Blood Count 5.57 x10^6/uL (4.30-5.70) 4.99 x10^6/uL (4.30-5.70) Hemoglobin 14.5 g/dL (13.0-17.5) 13.2 g/dL (13.0-17.5) Hematocrit 42.4 % (39.0-53.0) 38.6 % (39.0-53.0) Mean Corpuscular Volume 76 fL (79-100) 77 fL (79-100) Mean Corpuscular Hemoglobin 26 pg (25-35) 26 pg (25-35) Mean Corpuscular Hemoglobin Concent 34 g/dL (31-37) 34 g/dL (31-37) Red Cell Distribution Width 15.1 % (11.5-14.5) 15.0 % (11.5-14.5) Platelet Count 345 x10^3/uL (140-400) 318 x10^3/uL (140-400) Neutrophils (%) (Auto) 42 % (31-73) 53 % (31-73) Lymphocytes (%) (Auto) 35 % (24-48) 28 % (24-48) Monocytes (%) (Auto) 11 % (0-9) 9 % (0-9) Eosinophils (%) (Auto) 11 % (0-3) 10 % (0-3) Basophils (%) (Auto) 0 % (0-3) 1 % (0-3) Neutrophils # (Auto) 2.7 x10^3uL (1.8-7.7) 3.8 x10^3uL (1.8-7.7) Lymphocytes # (Auto) 2.2 x10^3/uL (1.0-4.8) 2.0 x10^3/uL (1.0-4.8) Monocytes # (Auto) 0.7 x10^3/uL (0.0-1.1) 0.6 x10^3/uL (0.0-1.1) Eosinophils # (Auto) 0.7 x10^3/uL (0.0-0.7) 0.7 x10^3/uL (0.0-0.7) Basophils # (Auto) 0.0 x10^3/uL (0.0-0.2) 0.1 x10^3/uL (0.0-0.2) Sodium Level 140 mmol/L (136-145) 141 mmol/L (136-145) Potassium Level 3.1 mmol/L (3.5-5.1) 3.3 mmol/L (3.5-5.1) Chloride Level 102 mmol/L (98-107) 105 mmol/L (98-107) Carbon Dioxide Level 28 mmol/L (21-32) 26 mmol/L (21-32) Anion Gap 10 (6-14) 10 (6-14) Blood Urea Nitrogen 11 mg/dL (8-26) 8 mg/dL (8-26) Creatinine 0.9 mg/dL (0.7-1.3) 0.8 mg/dL (0.7-1.3) Estimated GFR (Cockcroft-Gault) 103.8 118.9 BUN/Creatinine Ratio 12 (6-20) 10 (6-20) Glucose Level 98 mg/dL (70-99) 87 mg/dL (70-99) Calcium Level 9.0 mg/dL (8.5-10.1) 8.9 mg/dL (8.5-10.1) Magnesium Level 2.2 mg/dL (1.8-2.4) Total Bilirubin 0.6 mg/dL (0.2-1.0) 0.7 mg/dL (0.2-1.0) Aspartate Amino Transf (AST/SGOT) 16 U/L (15-37) 18 U/L (15-37) Alanine Aminotransferase (ALT/SGPT) 17 U/L (16-63) 15 U/L (16-63) Alkaline Phosphatase 120 U/L (46-116) 101 U/L (46-116) Troponin I Quantitative < 0.017 ng/mL (0.000-0.055) < 0.017 ng/mL (0.000-0.055) < 0.017 ng/mL (0.000-0.055) VR-Pgs-J-Type Natriuretic Peptide 58 pg/mL (0-124) Total Protein 7.7 g/dL (6.4-8.2) 6.4 g/dL (6.4-8.2) Albumin 3.8 g/dL (3.4-5.0) 3.3 g/dL (3.4-5.0) Albumin/Globulin Ratio 1.0 (1.0-1.7) 1.1 (1.0-1.7) Triglycerides Level 83 mg/dL (0-150) Cholesterol Level 160 mg/dL (0-200) LDL Cholesterol, Calculated 97 mg/dL (0-100) VLDL Cholesterol, Calculated 17 mg/dL (0-40) Non-HDL Cholesterol Calculated 114 mg/dL (0-129) HDL Cholesterol 46 mg/dL (40-60) Cholesterol/HDL Ratio 3.5 Thyroid Stimulating Hormone (TSH) 1.234 uIU/mL (0.358-3.74) ASSESSMENT/PLAN ASSESSMENT/PLAN 1. Chest pain: UA features 2. Multifocal PVCs with presyncopal spells 3. CAD; reported 40% blockage to 2 of his vessels via C 15 yrs ago. 4. HTN: controlled 5. HLP: controlled 6. Metabolic syndrome 7. Chronic urticaria: generalized 8. Possible IV contrast allergy 9. Hypokalemia 10. Abdominal pain: GI following Recommendations 1. [facility] today, risks and benefits discussed and agreeable to proceed. 2. Premed with solumedrol/benadryl/pepcid pre cath 3. ASA. Continue with secondary prevention and norvasc. 4. [facility]OT as an outpt and will note PVC burden. BB consideration pending C result. 5. Replace K. Check TIMA EDOUARD MD 07/15/18 1235: CARDIAC CONSULT ASSESSMENT/PLAN ASSESSMENT/PLAN Patient seen and examined. Agree with BUSINESS CONTINUITY MANAGEMENT DIRECTOR's assessment and plan. Clinical picture suspicious for unstable angina Myocardial infarction has been ruled out Agree with cardiac catheterization for definitive evaluation Plan for outpatient event monitor to assess PVC burden Thank you for your consultation DARÍO LUGO APRN Jul 15, 2018 09:39 TIMA HOWARD MD Jul 15, 2018 12:35
[2018-07-15] MEDS ORDERED: POLYETHYLENE GLYCOL 3350 17 GM PACKET. PO PRN (10:00)
[2018-07-15] MEDS ORDERED: HEPARIN for IV BOLUS 10,000 UNIT/10 ML VIAL. IART ONE (10:15)
[2018-07-15] MEDS ORDERED: fentaNYL PF VIAL 100 MCG/2 ML VIAL IV ONE (10:15)
[2018-07-15] MEDS ORDERED: VERAPAMIL 5 MG/2 ML VIAL. IART ONE (10:15)
[2018-07-15] MEDS ORDERED: IOHEXOL 300 MG/ML 100ML VIAL. IART ONE (10:15)
[2018-07-15] MEDS ORDERED: MIDAZOLAM HCL/PF 5 MG/5 ML VIAL. IV ONE (10:15)
[2018-07-15] MEDS ORDERED: LIDOCAINE 1% PF 2 ML VIAL. INJ ONE (10:15)
[2018-07-15] MEDS ORDERED: NITROGLYCERIN 200 MCG/2 ML SYRINGE FOR CATH/VASC LAB. IART ONE (10:15)
--- NOTE | 2018-07-15 10:39 | PDOC ---
PULMONARY PROGRESS NOTES Vitals Vital Signs Date Time Temp Pulse Resp B/P (MAP) Pulse Ox O2 Delivery O2 Flow Rate FiO2 07/15/18 10:32 93 131/73 07/15/18 10:28 19 98 Nasal Cannula 2.0 07/15/18 07:25 97.8 97.8 Labs Laboratory Tests Test 07/14/18 15:36 07/14/18 21:15 07/15/18 04:00 White Blood Count 6.4 x10^3/uL (4.0-11.0) 7.2 x10^3/uL (4.0-11.0) Red Blood Count 5.57 x10^6/uL (4.30-5.70) 4.99 x10^6/uL (4.30-5.70) Hemoglobin 14.5 g/dL (13.0-17.5) 13.2 g/dL (13.0-17.5) Hematocrit 42.4 % (39.0-53.0) 38.6 % (39.0-53.0) Mean Corpuscular Volume 76 fL (79-100) 77 fL (79-100) Mean Corpuscular Hemoglobin 26 pg (25-35) 26 pg (25-35) Mean Corpuscular Hemoglobin Concent 34 g/dL (31-37) 34 g/dL (31-37) Red Cell Distribution Width 15.1 % (11.5-14.5) 15.0 % (11.5-14.5) Platelet Count 345 x10^3/uL (140-400) 318 x10^3/uL (140-400) Neutrophils (%) (Auto) 42 % (31-73) 53 % (31-73) Lymphocytes (%) (Auto) 35 % (24-48) 28 % (24-48) Monocytes (%) (Auto) 11 % (0-9) 9 % (0-9) Eosinophils (%) (Auto) 11 % (0-3) 10 % (0-3) Basophils (%) (Auto) 0 % (0-3) 1 % (0-3) Neutrophils # (Auto) 2.7 x10^3uL (1.8-7.7) 3.8 x10^3uL (1.8-7.7) Lymphocytes # (Auto) 2.2 x10^3/uL (1.0-4.8) 2.0 x10^3/uL (1.0-4.8) Monocytes # (Auto) 0.7 x10^3/uL (0.0-1.1) 0.6 x10^3/uL (0.0-1.1) Eosinophils # (Auto) 0.7 x10^3/uL (0.0-0.7) 0.7 x10^3/uL (0.0-0.7) Basophils # (Auto) 0.0 x10^3/uL (0.0-0.2) 0.1 x10^3/uL (0.0-0.2) Sodium Level 140 mmol/L (136-145) 141 mmol/L (136-145) Potassium Level 3.1 mmol/L (3.5-5.1) 3.3 mmol/L (3.5-5.1) Chloride Level 102 mmol/L (98-107) 105 mmol/L (98-107) Carbon Dioxide Level 28 mmol/L (21-32) 26 mmol/L (21-32) Anion Gap 10 (6-14) 10 (6-14) Blood Urea Nitrogen 11 mg/dL (8-26) 8 mg/dL (8-26) Creatinine 0.9 mg/dL (0.7-1.3) 0.8 mg/dL (0.7-1.3) Estimated GFR (Cockcroft-Gault) 103.8 118.9 BUN/Creatinine Ratio 12 (6-20) 10 (6-20) Glucose Level 98 mg/dL (70-99) 87 mg/dL (70-99) Calcium Level 9.0 mg/dL (8.5-10.1) 8.9 mg/dL (8.5-10.1) Magnesium Level 2.2 mg/dL (1.8-2.4) Total Bilirubin 0.6 mg/dL (0.2-1.0) 0.7 mg/dL (0.2-1.0) Aspartate Amino Transf (AST/SGOT) 16 U/L (15-37) 18 U/L (15-37) Alanine Aminotransferase (ALT/SGPT) 17 U/L (16-63) 15 U/L (16-63) Alkaline Phosphatase 120 U/L (46-116) 101 U/L (46-116) Troponin I Quantitative < 0.017 ng/mL (0.000-0.055) < 0.017 ng/mL (0.000-0.055) < 0.017 ng/mL (0.000-0.055) QB-Ukq-V-Type Natriuretic Peptide 58 pg/mL (0-124) Total Protein 7.7 g/dL (6.4-8.2) 6.4 g/dL (6.4-8.2) Albumin 3.8 g/dL (3.4-5.0) 3.3 g/dL (3.4-5.0) Albumin/Globulin Ratio 1.0 (1.0-1.7) 1.1 (1.0-1.7) Triglycerides Level 83 mg/dL (0-150) Cholesterol Level 160 mg/dL (0-200) LDL Cholesterol, Calculated 97 mg/dL (0-100) VLDL Cholesterol, Calculated 17 mg/dL (0-40) Non-HDL Cholesterol Calculated 114 mg/dL (0-129) HDL Cholesterol 46 mg/dL (40-60) Cholesterol/HDL Ratio 3.5 Thyroid Stimulating Hormone (TSH) 1.234 uIU/mL (0.358-3.74) Laboratory Tests Test 07/14/18 15:36 07/14/18 21:15 07/15/18 04:00 White Blood Count 6.4 x10^3/uL (4.0-11.0) 7.2 x10^3/uL (4.0-11.0) Red Blood Count 5.57 x10^6/uL (4.30-5.70) 4.99 x10^6/uL (4.30-5.70) Hemoglobin 14.5 g/dL (13.0-17.5) 13.2 g/dL (13.0-17.5) Hematocrit 42.4 % (39.0-53.0) 38.6 % (39.0-53.0) Mean Corpuscular Volume 76 fL (79-100) 77 fL (79-100) Mean Corpuscular Hemoglobin 26 pg (25-35) 26 pg (25-35) Mean Corpuscular Hemoglobin Concent 34 g/dL (31-37) 34 g/dL (31-37) Red Cell Distribution Width 15.1 % (11.5-14.5) 15.0 % (11.5-14.5) Platelet Count 345 x10^3/uL (140-400) 318 x10^3/uL (140-400) Neutrophils (%) (Auto) 42 % (31-73) 53 % (31-73) Lymphocytes (%) (Auto) 35 % (24-48) 28 % (24-48) Monocytes (%) (Auto) 11 % (0-9) 9 % (0-9) Eosinophils (%) (Auto) 11 % (0-3) 10 % (0-3) Basophils (%) (Auto) 0 % (0-3) 1 % (0-3) Neutrophils # (Auto) 2.7 x10^3uL (1.8-7.7) 3.8 x10^3uL (1.8-7.7) Lymphocytes # (Auto) 2.2 x10^3/uL (1.0-4.8) 2.0 x10^3/uL (1.0-4.8) Monocytes # (Auto) 0.7 x10^3/uL (0.0-1.1) 0.6 x10^3/uL (0.0-1.1) Eosinophils # (Auto) 0.7 x10^3/uL (0.0-0.7) 0.7 x10^3/uL (0.0-0.7) Basophils # (Auto) 0.0 x10^3/uL (0.0-0.2) 0.1 x10^3/uL (0.0-0.2) Sodium Level 140 mmol/L (136-145) 141 mmol/L (136-145) Potassium Level 3.1 mmol/L (3.5-5.1) 3.3 mmol/L (3.5-5.1) Chloride Level 102 mmol/L (98-107) 105 mmol/L (98-107) Carbon Dioxide Level 28 mmol/L (21-32) 26 mmol/L (21-32) Anion Gap 10 (6-14) 10 (6-14) Blood Urea Nitrogen 11 mg/dL (8-26) 8 mg/dL (8-26) Creatinine 0.9 mg/dL (0.7-1.3) 0.8 mg/dL (0.7-1.3) Estimated GFR (Cockcroft-Gault) 103.8 118.9 BUN/Creatinine Ratio 12 (6-20) 10 (6-20) Glucose Level 98 mg/dL (70-99) 87 mg/dL (70-99) Calcium Level 9.0 mg/dL (8.5-10.1) 8.9 mg/dL (8.5-10.1) Magnesium Level 2.2 mg/dL (1.8-2.4) Total Bilirubin 0.6 mg/dL (0.2-1.0) 0.7 mg/dL (0.2-1.0) Aspartate Amino Transf (AST/SGOT) 16 U/L (15-37) 18 U/L (15-37) Alanine Aminotransferase (ALT/SGPT) 17 U/L (16-63) 15 U/L (16-63) Alkaline Phosphatase 120 U/L (46-116) 101 U/L (46-116) Troponin I Quantitative < 0.017 ng/mL (0.000-0.055) < 0.017 ng/mL (0.000-0.055) < 0.017 ng/mL (0.000-0.055) SR-Qld-Q-Type Natriuretic Peptide 58 pg/mL (0-124) Total Protein 7.7 g/dL (6.4-8.2) 6.4 g/dL (6.4-8.2) Albumin 3.8 g/dL (3.4-5.0) 3.3 g/dL (3.4-5.0) Albumin/Globulin Ratio 1.0 (1.0-1.7) 1.1 (1.0-1.7) Triglycerides Level 83 mg/dL (0-150) Cholesterol Level 160 mg/dL (0-200) LDL Cholesterol, Calculated 97 mg/dL (0-100) VLDL Cholesterol, Calculated 17 mg/dL (0-40) Non-HDL Cholesterol Calculated 114 mg/dL (0-129) HDL Cholesterol 46 mg/dL (40-60) Cholesterol/HDL Ratio 3.5 Thyroid Stimulating Hormone (TSH) 1.234 uIU/mL (0.358-3.74) Medications Active Scripts Medications Dose Route/Sig Max Daily Dose Days Date Category Hydrocodone-Acetamin 5-325 mg (Hydrocodone/Acetaminophen) 1 Each Tablet 1 Each PO PRN Q4HRS PRN 07/14/18 Reported Fexofenadine Hcl 180 Mg Tablet 180 Mg PO DAILY 07/14/18 Reported Hydroxyzine Hcl 25 Mg Tablet 25 Mg PO QID 07/14/18 Reported Triamterene-Hctz 37.5-25 Mg Cp (Triamterene/Hydrochlorothiazid) 1 Each Capsule 1 Cap PO DAILY 07/14/18 Reported Atorvastatin Calcium 20 Mg Tablet 20 Mg PO HS 07/14/18 Reported Aspirin 325 Mg Tablet 325 Mg PO DAILY 07/14/18 Reported Amlodipine Besylate 10 Mg Tablet 10 Mg PO DAILY 07/14/[address] CHEST IMPRESSION: 1. No evidence of pulmonary embolism. 2. Elevation or herniation of the right anterior hemidiaphragm, with most of the right lobe of liver located within the lower chest. 3. Small round structure in the left upper quadrant, probably just represents posterior gastric tissue, particularly as seen on the coronal and sagittal reconstructions. This appears to be separate from the adrenal gland rather than an adrenal mass. WILLIAM LEWIS MD Jul 15, 2018 10:39
--- NOTE | 2018-07-15 10:55 | CARD ---
MR#: [id number] Date of Study: 07/15/2018 Ordering Physician: DARÍO LUGO, Referring Physician: REILLY CORTES, Tech: RT Joselito (R) OLGA LIDIA APPROVED REPORT Technologist: RT Joselito (R) OLGA LIDIA Nurse: Chiquis Jarquin R.N. Procedure(s) performed: FLUORO TIME: 1.9 MIN DOSE: 56.7 Gycm2 mod sed: 27 min contrast: 96ml LHC, Coronary angiography, Left ventriculography HISTORY : The patient is a 63 year-old male with a history of . INDICATION The indication(s) include : unstable angina . CSHA Clinical Frailty Scale CSHA Clinical Frailty Scale: Managing Well Heart Failure Heart Failure: No PROCEDURE NARRATIVE INFORMED CONSENT: After explaining the risks and benefits of the procedure and alternatives, informed consent was obtained. The patient was brought electively to the cardiac catheterization lab. A timeout was performed confi rming the patient's name, date of , procedure, and site of procedure. All necessary personnel w ere wearing the appropriate protective equipment and radiation monitor devices. (See nursing notes for medications administered). ACCESS: The right wrist was sterilely prepped and draped in the usual fashion. The right wrist was infiltrat ed with 1 mL of 2% lidocaine for subcutaneous anesthesia. A 6 Yi Terumo glide sheath was inserte d into the right radial artery without difficulty. CORONARY ANGIOGRAPHY: Right and left coronary angiography was performed using a 6Fr TIG 4.0 catheter. Left ventricular en d diastolic pressure was obtained with a pigtail catheter and pullback was performed after left ventr iculography. All catheter exchanges and advancements were performed over a guidewire. CLOSURE: At case completion the right radial sheath was removed and a Terumo radial band was applied with 13 m l of air. COMPLICATIONS: The patient tolerated the procedure well and there were no immediate complications. FINDINGS: HEMODYNAMICS: LVEDP 5 mm Hg No gradient on LV to aortic pullback. AO: 128/78 LEFT VENTRICULOGRAM: EF 55% Anterobasal: Normal. Anterolateral: Normal Apical: Normal Diaphragmatic: Normal Posterobasal: Normal CORONARY ANGIOGRAPHY: LM is a long large caliber vessel with mild luminal irregularities. LAD is a large caliber vessel with mild luminal irregularities. Ramus is a moderate caliber vessel with mild luminal irregularities. LCx is a moderate caliber non-dominant vessel with normal angiographic appearance. OM1 has a high take-off and is a moderate caliber vessel with mild luminal irregularities. OM2 is a small to moderate caliber vessel with mild luminal irregularities. RCA is a large caliber dominant vessel with a mid 20% stenosis. RPDA and RPL are small caliber vessels with normal angiographic appearance. Conclusion 1. Normal left sided filling pressures. 2. Normal LV systolic function. EF 55% 3. Mild non-obstructive coronary disease. Recommendations Aggressive Medical Therapy Signed by : Sanju Egan, Electronically Approved : 07/15/2018 10:55:02
--- NOTE | 2018-07-15 12:47 | NUR ---
SS following for discharge planning. SS reviewed pt chart. Pt is from home with spouse and is currently on room air. No discharge needs noted at this time. SS will continue to follow for discharge planning.
[2018-07-15] MEDS: PANTOPRAZOLE 40 MG TABLET.DR. PO SCH (12:52)
[2018-07-15] MEDS: POLYETHYLENE GLYCOL 3350 17 GM PACKET. PO SCH (12:53)
--- NOTE | 2018-07-15 13:46 | PDOC2 ---
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 Endocrine: Diabetes (borderline), Other Dermatology: Eczema, Other (chronic urticaria) Past Surgical History Past Surgical History: Hernia Repair (umbilical), Other (TURP; cervical fusions) Family History Family History: Coronary Artery Disease (brother) Social History No ALCOHOL: none (occasionally in the past, now none) Drugs: None Lives: with Family Current Problem List Problem List Problems Medical Problems: (1) Chest pain Status: Acute (2) Fatigue Status: Acute Current Medications Current Medications Current Medications Sodium Chloride 1,000 ml @ 1,000 mls/hr 1X ONCE IV Last administered on 07/14/18at 15:55; Start 07/14/18 at 15:45; Stop 07/14/18 at 16:44; Status DC Iohexol (Omnipaque 350 Mg/ml) 100 ml 1X ONCE IV Last administered on 07/14/18at 16:52; Start 07/14/18 at 17:00; Stop 07/14/18 at 17:01; Status DC Info (CONTRAST GIVEN -- Rx MONITORING) 1 each PRN DAILY PRN MC SEE COMMENTS; Start 07/14/18 at 16:45; Stop 07/16/18 at 16:44 Potassium Chloride (Klor-Con) 40 meq 1X ONCE PO ; Start 07/14/18 at 18:30; Stop 07/14/18 at 18:31; Status UNV Morphine Sulfate (Morphine Sulfate) 2 mg PRN Q2HR PRN IV PAIN Last administered on 6/6/19at 13:05; Start 07/14/18 at 18:30 Potassium Chloride (Klor-Con) 40 meq 1X ONCE PO Last administered on 07/14/18 18:43; Start 07/14/18 at 18:30; Stop 07/14/18 at 18:37; Status DC Enoxaparin Sodium (Lovenox Per Pharmacy Prophylaxis Dosing) 1 each PRN DAILY PRN MC SEE COMMENTS; Start 07/14/18 at 19:15 Enoxaparin Sodium (Lovenox 40mg Syringe) 40 mg Q24H SQ Last administered on 07/14/18 21:15; Start 07/14/18 at 21:00 Nitroglycerin (Nitrostat) 0.4 mg PRN Q5MIN PRN SL CHEST PAIN Last administered on 07/14/18 19:45; Start 07/14/18 at 19:45 Amlodipine Besylate (Norvasc) 10 mg DAILY PO Last administered on 07/15/18 08:12; Start 07/15/18 at 09:00 Aspirin (Ofelia Aspirin) 325 mg DAILY PO Last administered on 07/15/18 08:11; Start 07/15/18 at 09:00 Atorvastatin Calcium (Lipitor) 20 mg HS PO ; Start 07/14/18 at 21:00; Stop 07/14/18 at 21:23; Status DC Acetaminophen/ Hydrocodone Bitart (Lortab 5/325) 1 tab PRN Q4HRS PRN PO MODERATE PAIN; Start 07/14/18 at 20:30 Hydroxyzine HCl (Atarax) 25 mg QID PO Last administered on 07/15/18 12:53; Start 07/14/18 at 21:00 Cetirizine HCl (ZyrTEC) 10 mg DAILY PO Last administered on 07/15/18 12:53; Start 07/15/18 at 09:00 Triamterene/HCTZ (Maxzide 37.5/ 25mg) 1 tab DAILY PO Last administered on 07/15/18 08:11; Start 07/15/18 at 09:00 Atorvastatin Calcium (Lipitor) 20 mg DAILY08 PO Last administered on 07/15/18 08:11; Start 07/15/18 at 08:00 Potassium Chloride (Klor-Con) 40 meq 1X ONCE PO Last administered on 6/6/19at 08:10; Start 07/15/18 at 08:00; Stop 07/15/18 at 08:06; Status DC Methylprednisolone Sodium Succinate (SOLU-Medrol 125MG VIAL) 125 mg 1X ONCE IV Last administered on 07/15/18at 09:38; Start 07/15/18 at 09:30; Stop 07/15/18 at 09:31; Status DC Diphenhydramine HCl (Benadryl) 25 mg 1X ONCE IM Last administered on 07/15/18at 09:39; Start 07/15/18 at 09:30; Stop 07/15/18 at 09:31; Status DC Famotidine (Pepcid Vial) 20 mg 1X ONCE IVP Last administered on 07/15/18at 09:39; Start 07/15/18 at 09:30; Stop 07/15/18 at 09:31; Status DC Lidocaine HCl (Xylocaine-Mpf 1% 2ml Vial) 2 ml STK-MED ONCE .ROUTE ; Start 07/15/18 at 09:31; Stop 07/15/18 at 09:32; Status DC Iohexol (Omnipaque 300 Mg/ml) 100 ml STK-MED ONCE .ROUTE ; Start 07/15/18 at 09:32; Stop 07/15/18 at 09:33; Status DC Heparin Sodium/ Sodium Chloride 1,500 ml @ As Directed STK-MED ONCE .ROUTE ; Start 07/15/18 at 09:32; Stop 07/15/18 at 09:33; Status DC Fentanyl Citrate (Fentanyl 2ml Vial) 100 mcg STK-MED ONCE .ROUTE ; Start 07/15/18 at 09:38; Stop 07/15/18 at 09:39; Status DC Midazolam HCl (Versed) 5 mg STK-MED ONCE .ROUTE ; Start 07/15/18 at 09:38; Stop 07/15/18 at 09:39; Status DC Heparin Sodium (Porcine) (Heparin Sodium) 10,000 unit STK-MED ONCE .ROUTE ; Start 07/15/18 at 09:38; Stop 07/15/18 at 09:39; Status DC Verapamil HCl (Verapamil) 5 mg STK-MED ONCE .ROUTE ; Start 07/15/18 at 09:38; Stop 07/15/18 at 09:39; Status DC Nitroglycerin (Nitroglycerin) 200 mcg STK-MED ONCE .ROUTE ; Start 07/15/18 at 09:38; Stop 07/15/18 at 09:39; Status DC Pantoprazole Sodium (Protonix) 40 mg DAILYAC PO Last administered on 07/15/18at 12:52; Start 07/15/18 at 11:30 Polyethylene Glycol (miraLAX PACKET) 17 gm DAILY PO Last administered on 07/15/18at 12:53; Start 07/15/18 at 11:00 Polyethylene Glycol (miraLAX PACKET) 17 gm PRN DAILY PRN PO CONSTIPATION; Start 07/15/18 at 10:00 Nitroglycerin (Nitroglycerin) 200 mcg 1X ONCE IART Last administered on 07/15/18at 10:31; Start 07/15/18 at 10:15; Stop 07/15/18 at 10:16; Status DC Verapamil HCl (Verapamil) 2.5 mg 1X ONCE IART Last administered on 07/15/18at 10:32; Start 07/15/18 at 10:15; Stop 07/15/18 at 10:16; Status DC Heparin Sodium (Porcine) (Heparin Sodium) 2,500 unit 1X ONCE IART Last adminis tered on 07/15/18at 10:33; Start 07/15/18 at 10:15; Stop 07/15/18 at 10:16; Status DC Heparin Sodium/ Sodium Chloride (HEPARIN for ARTERIAL LINE FLUSH) 1,000 unit 1X ONCE IART Last administered on 07/15/18at 10:27; Start 07/15/18 at 10:15; Stop 07/15/18 at 10:16; Status DC Heparin Sodium/ Sodium Chloride (HEPARIN for ARTERIAL LINE FLUSH) 1,000 unit 1X ONCE IART Last administered on 07/15/18at 10:27; Start 07/15/18 at 10:15; Stop 07/15/18 at 10:16; Status DC Midazolam HCl (Versed) 5 mg 1X ONCE IV Last administered on 07/15/18 10:27; Start 07/15/18 at 10:15; Stop 07/15/18 at 10:16; Status DC Fentanyl Citrate (Fentanyl 2ml Vial) 100 mcg 1X ONCE IV Last administered on 07/15/18at 10:28; Start 07/15/18 at 10:15; Stop 07/15/18 at 10:16; Status DC Iohexol (Omnipaque 300 Mg/ml) 100 ml 1X ONCE IART Last administered on 07/15/18at 10:27; Start 07/15/18 at 10:15; Stop 07/15/18 at 10:16; Status DC Lidocaine HCl (Xylocaine-Mpf 1% 2ml Vial) 2 ml 1X ONCE INJ Last administered on 07/15/18at 10:28; Start 07/15/18 at 10:15; Stop 07/15/18 at 10:16; Status DC Active Scripts Active Reported Hydrocodone-Acetamin 5-325 mg (Hydrocodone/Acetaminophen) 1 Each Tablet 1 Each PO PRN Q4HRS PRN Fexofenadine Hcl 180 Mg Tablet 180 Mg PO DAILY Hydroxyzine Hcl 25 Mg Tablet 25 Mg PO QID Triamterene-Hctz 37.5-25 Mg Cp (Triamterene/Hydrochlorothiazid) 1 Each Capsule 1 Cap PO DAILY Atorvastatin Calcium 20 Mg Tablet 20 Mg PO HS Aspirin 325 Mg Tablet 325 Mg PO DAILY Amlodipine Besylate 10 Mg Tablet 10 Mg PO DAILY Allergies Allergies: Coded Allergies: lisinopril (Verified Allergy, Severe, angioedema, 10/06/14) Penicillins (Verified Allergy, Intermediate, 10/06/14) Sulfa (Sulfonamide Antibiotics) (Verified Allergy, Intermediate, 10/06/14) codeine (Verified Allergy, Intermediate, rash, 10/06/14) ROS General: No: Chills, Other (fevers) PSYCHOLOGICAL ROS: No: Anxiety, Depression Eyes: No Blurry vision, No Double vision HEENT: No: Heacaches, Sore Throat Hematological and Lymphatic: No: Bleeding Problems, Blood Clots Respiratory: No: Cough, Shortness of breath Cardiovascular: yes Other (see hpi) Gastrointestinal: Yes Other (see hpi) Genitourinary: No Dysuria, No Hematuria Musculoskeletal: No Muscle Pain Neurological: No Confusion, No Memory Loss Skin: No Pruritus, No Rash Physical Exam General: Alert, Oriented X3, Cooperative, No acute distress HEENT: PERRLA, Mucous membr. moist/pink Lungs: Clear to auscultation, Normal air movement Heart: Regular rate, Normal S1, Normal S2 Abdomen: Soft, Other (ND, some mild TTP LUQ) Extremities: No clubbing, No cyanosis Skin: No rashes, No breakdown Neuro: Normal gait, Normal speech Psych/Mental Status: Mental status NL, Mood NL MUSCULOSKELETAL: No deformity, No swelling Vitals VITALS Vital Signs Date Time Temp Pulse Resp B/P (MAP) Pulse Ox O2 Delivery O2 Flow Rate FiO2 07/15/18 13:05 93 Room Air 2.0 07/15/18 10:57 97.7 74 16 103/70 (81) 97.7 Labs Labs Laboratory Tests Test 07/14/18 15:36 07/14/18 21:15 07/15/18 04:00 07/15/18 11:07 White Blood Count 6.4 x10^3/uL (4.0-11.0) 7.2 x10^3/uL (4.0-11.0) Red Blood Count 5.57 x10^6/uL (4.30-5.70) 4.99 x10^6/uL (4.30-5.70) Hemoglobin 14.5 g/dL (13.0-17.5) 13.2 g/dL (13.0-17.5) Hematocrit 42.4 % (39.0-53.0) 38.6 % (39.0-53.0) Mean Corpuscular Volume 76 fL (79-100) 77 fL (79-100) Mean Corpuscular Hemoglobin 26 pg (25-35) 26 pg (25-35) Mean Corpuscular Hemoglobin Concent 34 g/dL (31-37) 34 g/dL (31-37) Red Cell Distribution Width 15.1 % (11.5-14.5) 15.0 % (11.5-14.5) Platelet Count 345 x10^3/uL (140-400) 318 x10^3/uL (140-400) Neutrophils (%) (Auto) 42 % (31-73) 53 % (31-73) Lymphocytes (%) (Auto) 35 % (24-48) 28 % (24-48) Monocytes (%) (Auto) 11 % (0-9) 9 % (0-9) Eosinophils (%) (Auto) 11 % (0-3) 10 % (0-3) Basophils (%) (Auto) 0 % (0-3) 1 % (0-3) Neutrophils # (Auto) 2.7 x10^3uL (1.8-7.7) 3.8 x10^3uL (1.8-7.7) Lymphocytes # (Auto) 2.2 x10^3/uL (1.0-4.8) 2.0 x10^3/uL (1.0-4.8) Monocytes # (Auto) 0.7 x10^3/uL (0.0-1.1) 0.6 x10^3/uL (0.0-1.1) Eosinophils # (Auto) 0.7 x10^3/uL (0.0-0.7) 0.7 x10^3/uL (0.0-0.7) Basophils # (Auto) 0.0 x10^3/uL (0.0-0.2) 0.1 x10^3/uL (0.0-0.2) Sodium Level 140 mmol/L (136-145) 141 mmol/L (136-145) Potassium Level 3.1 mmol/L (3.5-5.1) 3.3 mmol/L (3.5-5.1) Chloride Level 102 mmol/L (98-107) 105 mmol/L (98-107) Carbon Dioxide Level 28 mmol/L (21-32) 26 mmol/L (21-32) Anion Gap 10 (6-14) 10 (6-14) Blood Urea Nitrogen 11 mg/dL (8-26) 8 mg/dL (8-26) Creatinine 0.9 mg/dL (0.7-1.3) 0.8 mg/dL (0.7-1.3) Estimated GFR (Cockcroft-Gault) 103.8 118.9 BUN/Creatinine Ratio 12 (6-20) 10 (6-20) Glucose Level 98 mg/dL (70-99) 87 mg/dL (70-99) Calcium Level 9.0 mg/dL (8.5-10.1) 8.9 mg/dL (8.5-10.1) Magnesium Level 2.2 mg/dL (1.8-2.4) Total Bilirubin 0.6 mg/dL (0.2-1.0) 0.7 mg/dL (0.2-1.0) Aspartate Amino Transf (AST/SGOT) 16 U/L (15-37) 18 U/L (15-37) Alanine Aminotransferase (ALT/SGPT) 17 U/L (16-63) 15 U/L (16-63) Alkaline Phosphatase 120 U/L (46-116) 101 U/L (46-116) Troponin I Quantitative < 0.017 ng/mL (0.000-0.055) < 0.017 ng/mL (0.000-0.055) < 0.017 ng/mL (0.000-0.055) BX-Ewv-T-Type Natriuretic Peptide 58 pg/mL (0-124) Total Protein 7.7 g/dL (6.4-8.2) 6.4 g/dL (6.4-8.2) Albumin 3.8 g/dL (3.4-5.0) 3.3 g/dL (3.4-5.0) Albumin/Globulin Ratio 1.0 (1.0-1.7) 1.1 (1.0-1.7) Triglycerides Level 83 mg/dL (0-150) Cholesterol Level 160 mg/dL (0-200) LDL Cholesterol, Calculated 97 mg/dL (0-100) VLDL Cholesterol, Calculated 17 mg/dL (0-40) Non-HDL Cholesterol Calculated 114 mg/dL (0-129) HDL Cholesterol 46 mg/dL (40-60) Cholesterol/HDL Ratio 3.5 Thyroid Stimulating Hormone (TSH) 1.234 uIU/mL (0.358-3.74) Iron Level 62 ug/dL (65-175) Total Iron Binding Capacity 299 ug/dL (250-450) Iron Saturation 21 % (15-34) Laboratory Tests Test 07/14/18 15:36 07/14/18 21:15 07/15/18 04:00 07/15/18 11:07 White Blood Count 6.4 x10^3/uL (4.0-11.0) 7.2 x10^3/uL (4.0-11.0) Red Blood Count 5.57 x10^6/uL (4.30-5.70) 4.99 x10^6/uL (4.30-5.70) Hemoglobin 14.5 g/dL (13.0-17.5) 13.2 g/dL (13.0-17.5) Hematocrit 42.4 % (39.0-53.0) 38.6 % (39.0-53.0) Mean Corpuscular Volume 76 fL (79-100) 77 fL (79-100) Mean Corpuscular Hemoglobin 26 pg (25-35) 26 pg (25-35) Mean Corpuscular Hemoglobin Concent 34 g/dL (31-37) 34 g/dL (31-37) Red Cell Distribution Width 15.1 % (11.5-14.5) 15.0 % (11.5-14.5) Platelet Count 345 x10^3/uL (140-400) 318 x10^3/uL (140-400) Neutrophils (%) (Auto) 42 % (31-73) 53 % (31-73) Lymphocytes (%) (Auto) 35 % (24-48) 28 % (24-48) Monocytes (%) (Auto) 11 % (0-9) 9 % (0-9) Eosinophils (%) (Auto) 11 % (0-3) 10 % (0-3) Basophils (%) (Auto) 0 % (0-3) 1 % (0-3) Neutrophils # (Auto) 2.7 x10^3uL (1.8-7.7) 3.8 x10^3uL (1.8-7.7) Lymphocytes # (Auto) 2.2 x10^3/uL (1.0-4.8) 2.0 x10^3/uL (1.0-4.8) Monocytes # (Auto) 0.7 x10^3/uL (0.0-1.1) 0.6 x10^3/uL (0.0-1.1) Eosinophils # (Auto) 0.7 x10^3/uL (0.0-0.7) 0.7 x10^3/uL (0.0-0.7) Basophils # (Auto) 0.0 x10^3/uL (0.0-0.2) 0.1 x10^3/uL (0.0-0.2) Sodium Level 140 mmol/L (136-145) 141 mmol/L (136-145) Potassium Level 3.1 mmol/L (3.5-5.1) 3.3 mmol/L (3.5-5.1) Chloride Level 102 mmol/L (98-107) 105 mmol/L (98-107) Carbon Dioxide Level 28 mmol/L (21-32) 26 mmol/L (21-32) Anion Gap 10 (6-14) 10 (6-14) Blood Urea Nitrogen 11 mg/dL (8-26) 8 mg/dL (8-26) Creatinine 0.9 mg/dL (0.7-1.3) 0.8 mg/dL (0.7-1.3) Estimated GFR (Cockcroft-Gault) 103.8 118.9 BUN/Creatinine Ratio 12 (6-20) 10 (6-20) Glucose Level 98 mg/dL (70-99) 87 mg/dL (70-99) Calcium Level 9.0 mg/dL (8.5-10.1) 8.9 mg/dL (8.5-10.1) Magnesium Level 2.2 mg/dL (1.8-2.4) Total Bilirubin 0.6 mg/dL (0.2-1.0) 0.7 mg/dL (0.2-1.0) Aspartate Amino Transf (AST/SGOT) 16 U/L (15-37) 18 U/L (15-37) Alanine Aminotransferase (ALT/SGPT) 17 U/L (16-63) 15 U/L (16-63) Alkaline Phosphatase 120 U/L (46-116) 101 U/L (46-116) Troponin I Quantitative < 0.017 ng/mL (0.000-0.055) < 0.017 ng/mL (0.000-0.055) < 0.017 ng/mL (0.000-0.055) FP-Pft-E-Type Natriuretic Peptide 58 pg/mL (0-124) Total Protein 7.7 g/dL (6.4-8.2) 6.4 g/dL (6.4-8.2) Albumin 3.8 g/dL (3.4-5.0) 3.3 g/dL (3.4-5.0) Albumin/Globulin Ratio 1.0 (1.0-1.7) 1.1 (1.0-1.7) Triglycerides Level 83 mg/dL (0-150) Cholesterol Level 160 mg/dL (0-200) LDL Cholesterol, Calculated 97 mg/dL (0-100) VLDL Cholesterol, Calculated 17 mg/dL (0-40) Non-HDL Cholesterol Calculated 114 mg/dL (0-129) HDL Cholesterol 46 mg/dL (40-60) Cholesterol/HDL Ratio 3.5 Thyroid Stimulating Hormone (TSH) 1.234 uIU/mL (0.358-3.74) Iron Level 62 ug/dL (65-175) Total Iron Binding Capacity 299 ug/dL (250-450) Iron Saturation 21 % (15-34) Assessment/Plan Assessment/Plan abdominal pain, chest pain hx of mesenteric panniculitis Cath results noted Noted Gi possible EGD In RACHEL OLIVARES APRN Jul 15, 2018 13:46
--- NOTE | 2018-07-15 14:48 | PDOC ---
PROGRESS NOTES Chief Complaint Chief Complaint Chest pain, rule out coronary disease GERD,. hiatal hernia History of Present Illness History of Present Illness plan EGD in AM Vitals Vitals Vital Signs Date Time Temp Pulse Resp B/P (MAP) Pulse Ox O2 Delivery O2 Flow Rate FiO2 07/15/18 13:46 93 Room Air 2.0 07/15/18 10:57 97.7 74 16 103/70 (81) 97.7 Physical Exam General: Alert, Oriented X3, Cooperative, No acute distress Heart: Regular rate, Normal S1, Normal S2 Abdomen: Soft, Other (ND, some mild TTP LUQ) Extremities: No clubbing, No cyanosis Skin: No rashes, No breakdown Labs LABS Laboratory Tests Test 07/14/18 15:36 07/14/18 21:15 07/15/18 04:00 07/15/18 11:07 White Blood Count 6.4 x10^3/uL (4.0-11.0) 7.2 x10^3/uL (4.0-11.0) Red Blood Count 5.57 x10^6/uL (4.30-5.70) 4.99 x10^6/uL (4.30-5.70) Hemoglobin 14.5 g/dL (13.0-17.5) 13.2 g/dL (13.0-17.5) Hematocrit 42.4 % (39.0-53.0) 38.6 % (39.0-53.0) Mean Corpuscular Volume 76 fL (79-100) 77 fL (79-100) Mean Corpuscular Hemoglobin 26 pg (25-35) 26 pg (25-35) Mean Corpuscular Hemoglobin Concent 34 g/dL (31-37) 34 g/dL (31-37) Red Cell Distribution Width 15.1 % (11.5-14.5) 15.0 % (11.5-14.5) Platelet Count 345 x10^3/uL (140-400) 318 x10^3/uL (140-400) Neutrophils (%) (Auto) 42 % (31-73) 53 % (31-73) Lymphocytes (%) (Auto) 35 % (24-48) 28 % (24-48) Monocytes (%) (Auto) 11 % (0-9) 9 % (0-9) Eosinophils (%) (Auto) 11 % (0-3) 10 % (0-3) Basophils (%) (Auto) 0 % (0-3) 1 % (0-3) Neutrophils # (Auto) 2.7 x10^3uL (1.8-7.7) 3.8 x10^3uL (1.8-7.7) Lymphocytes # (Auto) 2.2 x10^3/uL (1.0-4.8) 2.0 x10^3/uL (1.0-4.8) Monocytes # (Auto) 0.7 x10^3/uL (0.0-1.1) 0.6 x10^3/uL (0.0-1.1) Eosinophils # (Auto) 0.7 x10^3/uL (0.0-0.7) 0.7 x10^3/uL (0.0-0.7) Basophils # (Auto) 0.0 x10^3/uL (0.0-0.2) 0.1 x10^3/uL (0.0-0.2) Sodium Level 140 mmol/L (136-145) 141 mmol/L (136-145) Potassium Level 3.1 mmol/L (3.5-5.1) 3.3 mmol/L (3.5-5.1) Chloride Level 102 mmol/L (98-107) 105 mmol/L (98-107) Carbon Dioxide Level 28 mmol/L (21-32) 26 mmol/L (21-32) Anion Gap 10 (6-14) 10 (6-14) Blood Urea Nitrogen 11 mg/dL (8-26) 8 mg/dL (8-26) Creatinine 0.9 mg/dL (0.7-1.3) 0.8 mg/dL (0.7-1.3) Estimated GFR (Cockcroft-Gault) 103.8 118.9 BUN/Creatinine Ratio 12 (6-20) 10 (6-20) Glucose Level 98 mg/dL (70-99) 87 mg/dL (70-99) Calcium Level 9.0 mg/dL (8.5-10.1) 8.9 mg/dL (8.5-10.1) Magnesium Level 2.2 mg/dL (1.8-2.4) Total Bilirubin 0.6 mg/dL (0.2-1.0) 0.7 mg/dL (0.2-1.0) Aspartate Amino Transf (AST/SGOT) 16 U/L (15-37) 18 U/L (15-37) Alanine Aminotransferase (ALT/SGPT) 17 U/L (16-63) 15 U/L (16-63) Alkaline Phosphatase 120 U/L (46-116) 101 U/L (46-116) Troponin I Quantitative < 0.017 ng/mL (0.000-0.055) < 0.017 ng/mL (0.000-0.055) < 0.017 ng/mL (0.000-0.055) JE-Mev-G-Type Natriuretic Peptide 58 pg/mL (0-124) Total Protein 7.7 g/dL (6.4-8.2) 6.4 g/dL (6.4-8.2) Albumin 3.8 g/dL (3.4-5.0) 3.3 g/dL (3.4-5.0) Albumin/Globulin Ratio 1.0 (1.0-1.7) 1.1 (1.0-1.7) Triglycerides Level 83 mg/dL (0-150) Cholesterol Level 160 mg/dL (0-200) LDL Cholesterol, Calculated 97 mg/dL (0-100) VLDL Cholesterol, Calculated 17 mg/dL (0-40) Non-HDL Cholesterol Calculated 114 mg/dL (0-129) HDL Cholesterol 46 mg/dL (40-60) Cholesterol/HDL Ratio 3.5 Thyroid Stimulating Hormone (TSH) 1.234 uIU/mL (0.358-3.74) Iron Level 62 ug/dL (65-175) Total Iron Binding Capacity 299 ug/dL (250-450) Iron Saturation 21 % (15-34) Assessment and Plan Assessmemt and Plan Problems Medical Problems: (1) Chest pain Status: Acute (2) Fatigue Status: Acute Comment Review of Relevant I have reviewed the following items roberto (where applicable) has been applied. Labs Laboratory Tests Test 07/14/18 15:36 07/14/18 21:15 07/15/18 04:00 07/15/18 11:07 White Blood Count 6.4 x10^3/uL (4.0-11.0) 7.2 x10^3/uL (4.0-11.0) Red Blood Count 5.57 x10^6/uL (4.30-5.70) 4.99 x10^6/uL (4.30-5.70) Hemoglobin 14.5 g/dL (13.0-17.5) 13.2 g/dL (13.0-17.5) Hematocrit 42.4 % (39.0-53.0) 38.6 % (39.0-53.0) Mean Corpuscular Volume 76 fL (79-100) 77 fL (79-100) Mean Corpuscular Hemoglobin 26 pg (25-35) 26 pg (25-35) Mean Corpuscular Hemoglobin Concent 34 g/dL (31-37) 34 g/dL (31-37) Red Cell Distribution Width 15.1 % (11.5-14.5) 15.0 % (11.5-14.5) Platelet Count 345 x10^3/uL (140-400) 318 x10^3/uL (140-400) Neutrophils (%) (Auto) 42 % (31-73) 53 % (31-73) Lymphocytes (%) (Auto) 35 % (24-48) 28 % (24-48) Monocytes (%) (Auto) 11 % (0-9) 9 % (0-9) Eosinophils (%) (Auto) 11 % (0-3) 10 % (0-3) Basophils (%) (Auto) 0 % (0-3) 1 % (0-3) Neutrophils # (Auto) 2.7 x10^3uL (1.8-7.7) 3.8 x10^3uL (1.8-7.7) Lymphocytes # (Auto) 2.2 x10^3/uL (1.0-4.8) 2.0 x10^3/uL (1.0-4.8) Monocytes # (Auto) 0.7 x10^3/uL (0.0-1.1) 0.6 x10^3/uL (0.0-1.1) Eosinophils # (Auto) 0.7 x10^3/uL (0.0-0.7) 0.7 x10^3/uL (0.0-0.7) Basophils # (Auto) 0.0 x10^3/uL (0.0-0.2) 0.1 x10^3/uL (0.0-0.2) Sodium Level 140 mmol/L (136-145) 141 mmol/L (136-145) Potassium Level 3.1 mmol/L (3.5-5.1) 3.3 mmol/L (3.5-5.1) Chloride Level 102 mmol/L (98-107) 105 mmol/L (98-107) Carbon Dioxide Level 28 mmol/L (21-32) 26 mmol/L (21-32) Anion Gap 10 (6-14) 10 (6-14) Blood Urea Nitrogen 11 mg/dL (8-26) 8 mg/dL (8-26) Creatinine 0.9 mg/dL (0.7-1.3) 0.8 mg/dL (0.7-1.3) Estimated GFR (Cockcroft-Gault) 103.8 118.9 BUN/Creatinine Ratio 12 (6-20) 10 (6-20) Glucose Level 98 mg/dL (70-99) 87 mg/dL (70-99) Calcium Level 9.0 mg/dL (8.5-10.1) 8.9 mg/dL (8.5-10.1) Magnesium Level 2.2 mg/dL (1.8-2.4) Total Bilirubin 0.6 mg/dL (0.2-1.0) 0.7 mg/dL (0.2-1.0) Aspartate Amino Transf (AST/SGOT) 16 U/L (15-37) 18 U/L (15-37) Alanine Aminotransferase (ALT/SGPT) 17 U/L (16-63) 15 U/L (16-63) Alkaline Phosphatase 120 U/L (46-116) 101 U/L (46-116) Troponin I Quantitative < 0.017 ng/mL (0.000-0.055) < 0.017 ng/mL (0.000-0.055) < 0.017 ng/mL (0.000-0.055) NL-Xaq-R-Type Natriuretic Peptide 58 pg/mL (0-124) Total Protein 7.7 g/dL (6.4-8.2) 6.4 g/dL (6.4-8.2) Albumin 3.8 g/dL (3.4-5.0) 3.3 g/dL (3.4-5.0) Albumin/Globulin Ratio 1.0 (1.0-1.7) 1.1 (1.0-1.7) Triglycerides Level 83 mg/dL (0-150) Cholesterol Level 160 mg/dL (0-200) LDL Cholesterol, Calculated 97 mg/dL (0-100) VLDL Cholesterol, Calculated 17 mg/dL (0-40) Non-HDL Cholesterol Calculated 114 mg/dL (0-129) HDL Cholesterol 46 mg/dL (40-60) Cholesterol/HDL Ratio 3.5 Thyroid Stimulating Hormone (TSH) 1.234 uIU/mL (0.358-3.74) Iron Level 62 ug/dL (65-175) Total Iron Binding Capacity 299 ug/dL (250-450) Iron Saturation 21 % (15-34) Laboratory Tests Test 07/14/18 15:36 07/14/18 21:15 07/15/18 04:00 07/15/18 11:07 White Blood Count 6.4 x10^3/uL (4.0-11.0) 7.2 x10^3/uL (4.0-11.0) Red Blood Count 5.57 x10^6/uL (4.30-5.70) 4.99 x10^6/uL (4.30-5.70) Hemoglobin 14.5 g/dL (13.0-17.5) 13.2 g/dL (13.0-17.5) Hematocrit 42.4 % (39.0-53.0) 38.6 % (39.0-53.0) Mean Corpuscular Volume 76 fL (79-100) 77 fL (79-100) Mean Corpuscular Hemoglobin 26 pg (25-35) 26 pg (25-35) Mean Corpuscular Hemoglobin Concent 34 g/dL (31-37) 34 g/dL (31-37) Red Cell Distribution Width 15.1 % (11.5-14.5) 15.0 % (11.5-14.5) Platelet Count 345 x10^3/uL (140-400) 318 x10^3/uL (140-400) Neutrophils (%) (Auto) 42 % (31-73) 53 % (31-73) Lymphocytes (%) (Auto) 35 % (24-48) 28 % (24-48) Monocytes (%) (Auto) 11 % (0-9) 9 % (0-9) Eosinophils (%) (Auto) 11 % (0-3) 10 % (0-3) Basophils (%) (Auto) 0 % (0-3) 1 % (0-3) Neutrophils # (Auto) 2.7 x10^3uL (1.8-7.7) 3.8 x10^3uL (1.8-7.7) Lymphocytes # (Auto) 2.2 x10^3/uL (1.0-4.8) 2.0 x10^3/uL (1.0-4.8) Monocytes # (Auto) 0.7 x10^3/uL (0.0-1.1) 0.6 x10^3/uL (0.0-1.1) Eosinophils # (Auto) 0.7 x10^3/uL (0.0-0.7) 0.7 x10^3/uL (0.0-0.7) Basophils # (Auto) 0.0 x10^3/uL (0.0-0.2) 0.1 x10^3/uL (0.0-0.2) Sodium Level 140 mmol/L (136-145) 141 mmol/L (136-145) Potassium Level 3.1 mmol/L (3.5-5.1) 3.3 mmol/L (3.5-5.1) Chloride Level 102 mmol/L (98-107) 105 mmol/L (98-107) Carbon Dioxide Level 28 mmol/L (21-32) 26 mmol/L (21-32) Anion Gap 10 (6-14) 10 (6-14) Blood Urea Nitrogen 11 mg/dL (8-26) 8 mg/dL (8-26) Creatinine 0.9 mg/dL (0.7-1.3) 0.8 mg/dL (0.7-1.3) Estimated GFR (Cockcroft-Gault) 103.8 118.9 BUN/Creatinine Ratio 12 (6-20) 10 (6-20) Glucose Level 98 mg/dL (70-99) 87 mg/dL (70-99) Calcium Level 9.0 mg/dL (8.5-10.1) 8.9 mg/dL (8.5-10.1) Magnesium Level 2.2 mg/dL (1.8-2.4) Total Bilirubin 0.6 mg/dL (0.2-1.0) 0.7 mg/dL (0.2-1.0) Aspartate Amino Transf (AST/SGOT) 16 U/L (15-37) 18 U/L (15-37) Alanine Aminotransferase (ALT/SGPT) 17 U/L (16-63) 15 U/L (16-63) Alkaline Phosphatase 120 U/L (46-116) 101 U/L (46-116) Troponin I Quantitative < 0.017 ng/mL (0.000-0.055) < 0.017 ng/mL (0.000-0.055) < 0.017 ng/mL (0.000-0.055) GB-Zcv-L-Type Natriuretic Peptide 58 pg/mL (0-124) Total Protein 7.7 g/dL (6.4-8.2) 6.4 g/dL (6.4-8.2) Albumin 3.8 g/dL (3.4-5.0) 3.3 g/dL (3.4-5.0) Albumin/Globulin Ratio 1.0 (1.0-1.7) 1.1 (1.0-1.7) Triglycerides Level 83 mg/dL (0-150) Cholesterol Level 160 mg/dL (0-200) LDL Cholesterol, Calculated 97 mg/dL (0-100) VLDL Cholesterol, Calculated 17 mg/dL (0-40) Non-HDL Cholesterol Calculated 114 mg/dL (0-129) HDL Cholesterol 46 mg/dL (40-60) Cholesterol/HDL Ratio 3.5 Thyroid Stimulating Hormone (TSH) 1.234 uIU/mL (0.358-3.74) Iron Level 62 ug/dL (65-175) Total Iron Binding Capacity 299 ug/dL (250-450) Iron Saturation 21 % (15-34) Medications Current Medications Sodium Chloride 1,000 ml @ 1,000 mls/hr 1X ONCE IV Last administered on 07/14/18at 15:55; Start 07/14/18 at 15:45; Stop 07/14/18 at 16:44; Status DC Iohexol (Omnipaque 350 Mg/ml) 100 ml 1X ONCE IV Last administered on 07/14/18at 16:52; Start 07/14/18 at 17:00; Stop 07/14/18 at 17:01; Status DC Info (CONTRAST GIVEN -- Rx MONITORING) 1 each PRN DAILY PRN MC SEE COMMENTS; Start 07/14/18 at 16:45; Stop 07/16/18 at 16:44 Potassium Chloride (Klor-Con) 40 meq 1X ONCE PO ; Start 07/14/18 at 18:30; Stop 07/14/18 at 18:31; Status UNV Morphine Sulfate (Morphine Sulfate) 2 mg PRN Q2HR PRN IV PAIN Last administered on 07/15/18at 13:05; Start 07/14/18 at 18:30 Potassium Chloride (Klor-Con) 40 meq 1X ONCE PO Last administered on 07/14/18at 18:43; Start 07/14/18 at 18:30; Stop 07/14/18 at 18:37; Status DC Enoxaparin Sodium (Lovenox Per Pharmacy Prophylaxis Dosing) 1 each PRN DAILY PRN MC SEE COMMENTS; Start 07/14/18 at 19:15 Enoxaparin Sodium (Lovenox 40mg Syringe) 40 mg Q24H SQ Last administered on 07/14/18at 21:15; Start 07/14/18 at 21:00 Nitroglycerin (Nitrostat) 0.4 mg PRN Q5MIN PRN SL CHEST PAIN Last administered on 07/14/18at 19:45; Start 07/14/18 at 19:45 Amlodipine Besylate (Norvasc) 10 mg DAILY PO Last administered on 07/15/18at 08:12; Start 07/15/18 at 09:00 Aspirin (Ofelia Aspirin) 325 mg DAILY PO Last administered on 07/15/18at 08:11; Start 07/15/18 at 09:00 Atorvastatin Calcium (Lipitor) 20 mg HS PO ; Start 07/14/18 at 21:00; Stop 07/14/18 at 21:23; Status DC Acetaminophen/ Hydrocodone Bitart (Lortab 5/325) 1 tab PRN Q4HRS PRN PO MODERATE PAIN; Start 07/14/18 at 20:30 Hydroxyzine HCl (Atarax) 25 mg QID PO Last administered on 07/15/18at 12:53; Start 07/14/18 at 21:00 Cetirizine HCl (ZyrTEC) 10 mg DAILY PO Last administered on 07/15/18at 12:53; Start 07/15/18 at 09:00 Triamterene/HCTZ (Maxzide 37.5/ 25mg) 1 tab DAILY PO Last administered on 07/15/18at 08:11; Start 07/15/18 at 09:00 Atorvastatin Calcium (Lipitor) 20 mg DAILY08 PO Last administered on 07/15/18at 08:11; Start 07/15/18 at 08:00 Potassium Chloride (Klor-Con) 40 meq 1X ONCE PO Last administered on 07/15/18at 08:10; Start 07/15/18 at 08:00; Stop 07/15/18 at 08:06; Status DC Methylprednisolone Sodium Succinate (SOLU-Medrol 125MG VIAL) 125 mg 1X ONCE IV Last administered on 07/15/18at 09:38; Start 07/15/18 at 09:30; Stop 07/15/18 at 09:31; Status DC Diphenhydramine HCl (Benadryl) 25 mg 1X ONCE IM Last administered on 07/15/18at 09:39; Start 07/15/18 at 09:30; Stop 07/15/18 at 09:31; Status DC Famotidine (Pepcid Vial) 20 mg 1X ONCE IVP Last administered on 07/15/18at 09:3 9; Start 07/15/18 at 09:30; Stop 07/15/18 at 09:31; Status DC Lidocaine HCl (Xylocaine-Mpf 1% 2ml Vial) 2 ml STK-MED ONCE .ROUTE ; Start 07/15/18 at 09:31; Stop 07/15/18 at 09:32; Status DC Iohexol (Omnipaque 300 Mg/ml) 100 ml STK-MED ONCE .ROUTE ; Start 07/15/18 at 09:32; Stop 07/15/18 at 09:33; Status DC Heparin Sodium/ Sodium Chloride 1,500 ml @ As Directed STK-MED ONCE .ROUTE ; Start 07/15/18 at 09:32; Stop 07/15/18 at 09:33; Status DC Fentanyl Citrate (Fentanyl 2ml Vial) 100 mcg STK-MED ONCE .ROUTE ; Start 07/15/18 at 09:38; Stop 07/15/18 at 09:39; Status DC Midazolam HCl (Versed) 5 mg STK-MED ONCE .ROUTE ; Start 07/15/18 at 09:38; Stop 07/15/18 at 09:39; Status DC Heparin Sodium (Porcine) (Heparin Sodium) 10,000 unit STK-MED ONCE .ROUTE ; Start 07/15/18 at 09:38; Stop 07/15/18 at 09:39; Status DC Verapamil HCl (Verapamil) 5 mg STK-MED ONCE .ROUTE ; Start 07/15/18 at 09:38; Stop 07/15/18 at 09:39; Status DC Nitroglycerin (Nitroglycerin) 200 mcg STK-MED ONCE .ROUTE ; Start 07/15/18 at 09:38; Stop 07/15/18 at 09:39; Status DC Pantoprazole Sodium (Protonix) 40 mg DAILYAC PO Last administered on 07/15/18at 12:52; Start 07/15/18 at 11:30 Polyethylene Glycol (miraLAX PACKET) 17 gm DAILY PO Last administered on 07/15/18at 12:53; Start 07/15/18 at 11:00 Polyethylene Glycol (miraLAX PACKET) 17 gm PRN DAILY PRN PO CONSTIPATION; Start 07/15/18 at 10:00 Nitroglycerin (Nitroglycerin) 200 mcg 1X ONCE IART Last administered on 07/15/18at 10:31; Start 07/15/18 at 10:15; Stop 07/15/18 at 10:16; Status DC Verapamil HCl (Verapamil) 2.5 mg 1X ONCE IART Last administered on 07/15/18at 10:32; Start 07/15/18 at 10:15; Stop 07/15/18 at 10:16; Status DC Heparin Sodium (Porcine) (Heparin Sodium) 2,500 unit 1X ONCE IART Last administered on 07/15/18at 10:33; Start 07/15/18 at 10:15; Stop 07/15/18 at 10:16; Status DC Heparin Sodium/ Sodium Chloride (HEPARIN for ARTERIAL LINE FLUSH) 1,000 unit 1X ONCE IART Last administered on 07/15/18at 10:27; Start 07/15/18 at 10:15; Stop 07/15/18 at 10:16; Status DC Heparin Sodium/ Sodium Chloride (HEPARIN for ARTERIAL LINE FLUSH) 1,000 unit 1X ONCE IART Last administered on 07/15/18at 10:27; Start 07/15/18 at 10:15; Stop 07/15/18 at 10:16; Status DC Midazolam HCl (Versed) 5 mg 1X ONCE IV Last administered on 07/15/18at 10:27; Start 07/15/18 at 10:15; Stop 07/15/18 at 10:16; Status DC Fentanyl Citrate (Fentanyl 2ml Vial) 100 mcg 1X ONCE IV Last administered on 07/15/18at 10:28; Start 07/15/18 at 10:15; Stop 07/15/18 at 10:16; Status DC Iohexol (Omnipaque 300 Mg/ml) 100 ml 1X ONCE IART Last administered on 07/15/18at 10:27; Start 07/15/18 at 10:15; Stop 07/15/18 at 10:16; Status DC Lidocaine HCl (Xylocaine-Mpf 1% 2ml Vial) 2 ml 1X ONCE INJ Last administered on 07/15/18at 10:28; Start 07/15/18 at 10:15; Stop 07/15/18 at 10:16; Status DC Active Scripts Active Reported Hydrocodone-Acetamin 5-325 mg (Hydrocodone/Acetaminophen) 1 Each Tablet 1 Each PO PRN Q4HRS PRN Fexofenadine Hcl 180 Mg Tablet 180 Mg PO DAILY Hydroxyzine Hcl 25 Mg Tablet 25 Mg PO QID Triamterene-Hctz 37.5-25 Mg Cp (Triamterene/Hydrochlorothiazid) 1 Each Capsule 1 Cap PO DAILY Atorvastatin Calcium 20 Mg Tablet 20 Mg PO HS Aspirin 325 Mg Tablet 325 Mg PO DAILY Amlodipine Besylate 10 Mg Tablet 10 Mg PO DAILY Vitals/I & O Vital Sign - Last 24 Hours 07/14/18 07/14/18 07/14/18 07/14/18 15:22 15:32 16:02 16:32 Temp 98.1 98.1 Pulse 84 80 74 70 Resp 16 18 14 10 B/P (MAP) 132/80 (97) 138/87 (104) 121/81 (94) 118/75 (89) Pulse Ox 95 96 97 96 O2 Delivery Room Air Room Air Room Air Room Air 07/14/18 07/14/18 07/14/18 07/14/18 18:05 18:43 19:40 19:45 Temp 98.3 98.2 98.3 98.2 Pulse 73 69 69 Resp 14 16 16 B/P (MAP) 136/89 (105) 120/84 (96) 120/84 Pulse Ox 95 96 O2 Delivery Room Air Room Air Room Air 07/14/18 07/14/18 07/14/18 07/15/18 20:00 21:18 22:36 02:11 Temp 98.1 98.1 98.1 98.1 Pulse 65 67 Resp 16 16 B/P (MAP) 114/80 (91) 122/77 (92) Pulse Ox 96 96 93 O2 Delivery Room Air Room Air Room Air Room Air 07/15/18 07/15/18 07/15/18 07/15/18 07:25 08:00 08:12 08:13 Temp 97.8 97.8 Pulse 63 63 Resp 14 14 B/P (MAP) 127/78 (94) 127/78 Pulse Ox 98 98 O2 Delivery Room Air Room Air Room Air 07/15/18 07/15/18 07/15/18 07/15/18 10:28 10:32 10:35 10:57 Temp 97.7 97.7 Pulse 93 79 74 Resp 19 16 B/P (MAP) 131/73 103/70 (81) Pulse Ox 98 96 93 O2 Delivery Nasal Cannula Room Air Room Air O2 Flow Rate 2.0 07/15/18 07/15/18 07/15/18 13:00 13:05 13:46 Pulse Ox 93 93 93 O2 Delivery Room Air Room Air Room Air O2 Flow Rate 2.0 2.0 2.0 Intake and Output 07/14/18 07/14/18 07/15/18 15:00 23:00 07:00 Intake Total 1000 ml 240 ml Balance 1000 ml 240 ml CHAR NAJERA MD Jul 15, 2018 14:48
--- NOTE | 2018-07-15 15:41 | CARD ---
MR#: [id number] Date of Study: 07/15/2018 Ordering Physician: DARÍO LUGO, Referring Physician: REILLY CORTES Tech: Sonia Montez APPROVED REPORT EXAM: Two-dimensional and M-mode echocardiogram with Doppler and color Doppler. Other Information Quality : GoodHR: 72bpm Rhythm : NSR INDICATION CAD Chest Pain RISK FACTORS Hypertension Hyperlipidemia Asthma 2D DIMENSIONS RVDd3.7 (2.9-3.5cm)Left Atrium(2D)3.5 (1.6-4.0cm) IVSd1.2 (0.7-1.1cm)Aortic Root(2D)3.4 (2.0-3.7cm) LVDd5.0 (3.9-5.9cm)LVOT Diameter2.2 (1.8-2.4cm) PWd1.1 (0.7-1.1cm)LVDs3.3 (2.5-4.0cm) FS (%) 32.4 %SV70.1 ml LVEF(%)60.5 (>50%) Aortic Valve AoV Peak Calderon.141.8cm/sAoV VTI27.0cm AO Peak GR.8.0mmHgLVOT Peak Calderon.100.0cm/s LVOT VTI 19.12cmAO Mean GR.4mmHg MACARIO (VMAX)1.93op4XQN (VTI)2.65cm2 AI P 1/2 Obpf094iv Mitral Valve MV E Fbuvfcfx07.6cm/sMV DECEL [id number] MV A Ceqriwcq33.2cm/sMV ITB11fa E/A Ratio1.0MVA (PHT)4.04cm2 TDI E/Lateral E'7.0E/Medial E'11.1 Pulmonary Valve PV Peak Mdmpusek63.6cm/sPV Peak Grad.3mmHg Tricuspid Valve TR P. Zuegjjly050ny/sRAP [id number] TR Peak Gr.[id number] LEFT VENTRICLE The left ventricle is normal size. There is mild concentric left ventricular hypertrophy. The left ve ntricular systolic function is normal. The Ejection Fraction is 55-60%. There is normal LV segmental wall motion. The left ventricular diastolic function and filling is normal for age. RIGHT VENTRICLE The right ventricle is normal size. There is normal right ventricular wall thickness. The right ventr icular systolic function is normal. ATRIA The left atrium size is normal. The right atrium size is normal. The interatrial septum is intact wit h no evidence for an atrial septal defect or patent foramen ovale as noted on 2-D or Doppler imaging. AORTIC VALVE The aortic valve is normal in structure and function. Doppler and Color Flow revealed trace aortic re gurgitation. There is no significant aortic valvular stenosis. MITRAL VALVE The mitral valve is normal in structure and function. There is no evidence of mitral valve prolapse. There is no mitral valve stenosis. Doppler and Color-flow revealed trace mitral regurgitation. TRICUSPID VALVE The tricuspid valve is normal in structure and function. Doppler and Color Flow revealed trace tricus pid regurgitation with an estimated PAP of 32 mmHg. There is no tricuspid valve stenosis. PULMONIC VALVE The pulmonary valve is normal in structure and function. Doppler and Color Flow revealed trace pulmon ic valvular regurgitation. GREAT VESSELS The aortic root is normal in size. The IVC is normal in size and collapses >50% with inspiration. PERICARDIAL EFFUSION There is no evidence of significant pericardial effusion. Critical Notification Critical Value: No <Conclusion> The left ventricular systolic function is normal. The Ejection Fraction is 55-60%. There is normal LV segmental wall motion. Trace mitral regurgitation. Trace tricuspid regurgitation with an estimated PAP of 32 mmHg. There is no evidence of significant pericardial effusion. Signed by : Edvin Gregory, Electronically Approved : 07/15/2018 15:41:09
[2018-07-15] MEDS: ENOXAPARIN 40 MG/0.4 ML SYRINGE. SQ SCH (21:13)
[2018-07-16] MEDS: MORPHINE SULFATE 2 MG/ML VIAL. IV PRN ×2 (00:27→07:23)
[2018-07-16 02:57] VITALS: BP 114/74
[2018-07-16 07:00] VITALS: BP 135/86
[2018-07-16] MEDS ORDERED: IV RINGERS,LACTATED 1000ML 1,000 ML IV SCH (07:00)
[2018-07-16] MEDS ORDERED: LIDOCAINE 2% PF 5 ML VIAL. ONE (08:41)
[2018-07-16] MEDS ORDERED: PROPOFOL 20 ML IV ONE (08:41)
--- NOTE | 2018-07-16 09:11 | PDOC4 ---
Operative Note Operative Note EGD Meds propofol per anesthesia Pre-op dx abnl ct scan post-op dx gastric cardia diverticulum Plan resume diet advance activity as tolerated VISH BANG MD Jul 16, 2018 09:11
[2018-07-16] MEDS: POLYETHYLENE GLYCOL 3350 17 GM PACKET. PO SCH (10:54)
[2018-07-16] MEDS: PANTOPRAZOLE 40 MG TABLET.DR. PO SCH (10:55)
[2018-07-16] MEDS: ASPIRIN 325 MG TABLET PO SCH (10:55)
[2018-07-16] MEDS: ATORVASTATIN CALCIUM 20 MG TABLET PO SCH (10:55)
[2018-07-16] MEDS: amLODIPine BESYLATE 10 MG TABLET PO SCH (10:57)
[2018-07-16] MEDS: TRIAMTERENE/HCTZ 37.5/25MG TABLET. PO SCH (10:57)
[2018-07-16] MEDS: CETIRIZINE HCL 10 MG TABLET. PO SCH (10:57)
[2018-07-16] MEDS: hydrOXYzine 25 MG TABLET PO SCH ×2 (10:57→13:00)
--- NOTE | 2018-07-16 11:04 | PDOC ---
PULMONARY PROGRESS NOTES Vitals Vital Signs Date Time Temp Pulse Resp B/P (MAP) Pulse Ox O2 Delivery O2 Flow Rate FiO2 07/16/18 10:57 73 125/77 07/16/18 09:35 16 98 Room Air 07/16/18 09:09 98.7 98.7 07/16/18 07:48 2.0 Labs Laboratory Tests Test 07/14/18 15:36 07/14/18 21:15 07/15/18 04:00 07/15/18 11:07 White Blood Count 6.4 x10^3/uL (4.0-11.0) 7.2 x10^3/uL (4.0-11.0) Red Blood Count 5.57 x10^6/uL (4.30-5.70) 4.99 x10^6/uL (4.30-5.70) Hemoglobin 14.5 g/dL (13.0-17.5) 13.2 g/dL (13.0-17.5) Hematocrit 42.4 % (39.0-53.0) 38.6 % (39.0-53.0) Mean Corpuscular Volume 76 fL (79-100) 77 fL (79-100) Mean Corpuscular Hemoglobin 26 pg (25-35) 26 pg (25-35) Mean Corpuscular Hemoglobin Concent 34 g/dL (31-37) 34 g/dL (31-37) Red Cell Distribution Width 15.1 % (11.5-14.5) 15.0 % (11.5-14.5) Platelet Count 345 x10^3/uL (140-400) 318 x10^3/uL (140-400) Neutrophils (%) (Auto) 42 % (31-73) 53 % (31-73) Lymphocytes (%) (Auto) 35 % (24-48) 28 % (24-48) Monocytes (%) (Auto) 11 % (0-9) 9 % (0-9) Eosinophils (%) (Auto) 11 % (0-3) 10 % (0-3) Basophils (%) (Auto) 0 % (0-3) 1 % (0-3) Neutrophils # (Auto) 2.7 x10^3uL (1.8-7.7) 3.8 x10^3uL (1.8-7.7) Lymphocytes # (Auto) 2.2 x10^3/uL (1.0-4.8) 2.0 x10^3/uL (1.0-4.8) Monocytes # (Auto) 0.7 x10^3/uL (0.0-1.1) 0.6 x10^3/uL (0.0-1.1) Eosinophils # (Auto) 0.7 x10^3/uL (0.0-0.7) 0.7 x10^3/uL (0.0-0.7) Basophils # (Auto) 0.0 x10^3/uL (0.0-0.2) 0.1 x10^3/uL (0.0-0.2) Sodium Level 140 mmol/L (136-145) 141 mmol/L (136-145) Potassium Level 3.1 mmol/L (3.5-5.1) 3.3 mmol/L (3.5-5.1) Chloride Level 102 mmol/L (98-107) 105 mmol/L (98-107) Carbon Dioxide Level 28 mmol/L (21-32) 26 mmol/L (21-32) Anion Gap 10 (6-14) 10 (6-14) Blood Urea Nitrogen 11 mg/dL (8-26) 8 mg/dL (8-26) Creatinine 0.9 mg/dL (0.7-1.3) 0.8 mg/dL (0.7-1.3) Estimated GFR (Cockcroft-Gault) 103.8 118.9 BUN/Creatinine Ratio 12 (6-20) 10 (6-20) Glucose Level 98 mg/dL (70-99) 87 mg/dL (70-99) Calcium Level 9.0 mg/dL (8.5-10.1) 8.9 mg/dL (8.5-10.1) Magnesium Level 2.2 mg/dL (1.8-2.4) Total Bilirubin 0.6 mg/dL (0.2-1.0) 0.7 mg/dL (0.2-1.0) Aspartate Amino Transf (AST/SGOT) 16 U/L (15-37) 18 U/L (15-37) Alanine Aminotransferase (ALT/SGPT) 17 U/L (16-63) 15 U/L (16-63) Alkaline Phosphatase 120 U/L (46-116) 101 U/L (46-116) Troponin I Quantitative < 0.017 ng/mL (0.000-0.055) < 0.017 ng/mL (0.000-0.055) < 0.017 ng/mL (0.000-0.055) LA-Ohb-I-Type Natriuretic Peptide 58 pg/mL (0-124) Total Protein 7.7 g/dL (6.4-8.2) 6.4 g/dL (6.4-8.2) Albumin 3.8 g/dL (3.4-5.0) 3.3 g/dL (3.4-5.0) Albumin/Globulin Ratio 1.0 (1.0-1.7) 1.1 (1.0-1.7) Triglycerides Level 83 mg/dL (0-150) Cholesterol Level 160 mg/dL (0-200) LDL Cholesterol, Calculated 97 mg/dL (0-100) VLDL Cholesterol, Calculated 17 mg/dL (0-40) Non-HDL Cholesterol Calculated 114 mg/dL (0-129) HDL Cholesterol 46 mg/dL (40-60) Cholesterol/HDL Ratio 3.5 Thyroid Stimulating Hormone (TSH) 1.234 uIU/mL (0.358-3.74) Iron Level 62 ug/dL (65-175) Total Iron Binding Capacity 299 ug/dL (250-450) Iron Saturation 21 % (15-34) Laboratory Tests Test 07/15/18 11:07 Iron Level 62 ug/dL (65-175) Total Iron Binding Capacity 299 ug/dL (250-450) Iron Saturation 21 % (15-34) Medications Active Scripts Medications Dose Route/Sig Max Daily Dose Days Date Category Hydrocodone-Acetamin 5-325 mg (Hydrocodone/Acetaminophen) 1 Each Tablet 1 Each PO PRN Q4HRS PRN 07/14/18 Reported Fexofenadine Hcl 180 Mg Tablet 180 Mg PO DAILY 07/14/18 Reported Hydroxyzine Hcl 25 Mg Tablet 25 Mg PO QID 07/14/18 Reported Triamterene-Hctz 37.5-25 Mg Cp (Triamterene/Hydrochlorothiazid) 1 Each Capsule 1 Cap PO DAILY 07/14/18 Reported Atorvastatin Calcium 20 Mg Tablet 20 Mg PO HS 07/14/18 Reported Aspirin 325 Mg Tablet 325 Mg PO DAILY 07/14/18 Reported Amlodipine Besylate 10 Mg Tablet 10 Mg PO DAILY 07/14/[address] CHEST IMPRESSION: 1. No evidence of pulmonary embolism. 2. Elevation or herniation of the right anterior hemidiaphragm, with most of the right lobe of liver located within the lower chest. 3. Small round structure in the left upper quadrant, probably just represents posterior gastric tissue, particularly as seen on the coronal and sagittal reconstructions. This appears to be separate from the adrenal gland rather than an adrenal mass. WILLIAM LEWIS MD Jul 16, 2018 11:04
[2018-07-16 11:27] VITALS: BP 125/77
--- NOTE | 2018-07-16 12:29 | PDOC ---
RACHEL MONTANEZ CASKET ASSEMBLER METAL 07/16/18 1229: SURGICAL PROGRESS NOTE Subjective still with left sided chest, back pain asking if related to liver being pressed into chest Vital Signs Vital Signs Date Time Temp Pulse Resp B/P (MAP) Pulse Ox O2 Delivery O2 Flow Rate FiO2 07/16/18 11:27 97.9 76 18 125/77 (93) 96 Room Air 97.9 07/16/18 07:48 2.0 I&O Intake and Output 07/16/18 07:00 Intake Total 120 ml Balance 120 ml Intake Oral 120 ml # Voids 3 General: Alert, Oriented X3, Cooperative, No acute distress Abdomen: Soft, Other (ND, mild TTP LUQ) Labs Laboratory Tests Test 07/14/18 15:36 07/14/18 21:15 07/15/18 04:00 07/15/18 11:07 White Blood Count 6.4 x10^3/uL (4.0-11.0) 7.2 x10^3/uL (4.0-11.0) Red Blood Count 5.57 x10^6/uL (4.30-5.70) 4.99 x10^6/uL (4.30-5.70) Hemoglobin 14.5 g/dL (13.0-17.5) 13.2 g/dL (13.0-17.5) Hematocrit 42.4 % (39.0-53.0) 38.6 % (39.0-53.0) Mean Corpuscular Volume 76 fL (79-100) 77 fL (79-100) Mean Corpuscular Hemoglobin 26 pg (25-35) 26 pg (25-35) Mean Corpuscular Hemoglobin Concent 34 g/dL (31-37) 34 g/dL (31-37) Red Cell Distribution Width 15.1 % (11.5-14.5) 15.0 % (11.5-14.5) Platelet Count 345 x10^3/uL (140-400) 318 x10^3/uL (140-400) Neutrophils (%) (Auto) 42 % (31-73) 53 % (31-73) Lymphocytes (%) (Auto) 35 % (24-48) 28 % (24-48) Monocytes (%) (Auto) 11 % (0-9) 9 % (0-9) Eosinophils (%) (Auto) 11 % (0-3) 10 % (0-3) Basophils (%) (Auto) 0 % (0-3) 1 % (0-3) Neutrophils # (Auto) 2.7 x10^3uL (1.8-7.7) 3.8 x10^3uL (1.8-7.7) Lymphocytes # (Auto) 2.2 x10^3/uL (1.0-4.8) 2.0 x10^3/uL (1.0-4.8) Monocytes # (Auto) 0.7 x10^3/uL (0.0-1.1) 0.6 x10^3/uL (0.0-1.1) Eosinophils # (Auto) 0.7 x10^3/uL (0.0-0.7) 0.7 x10^3/uL (0.0-0.7) Basophils # (Auto) 0.0 x10^3/uL (0.0-0.2) 0.1 x10^3/uL (0.0-0.2) Sodium Level 140 mmol/L (136-145) 141 mmol/L (136-145) Potassium Level 3.1 mmol/L (3.5-5.1) 3.3 mmol/L (3.5-5.1) Chloride Level 102 mmol/L (98-107) 105 mmol/L (98-107) Carbon Dioxide Level 28 mmol/L (21-32) 26 mmol/L (21-32) Anion Gap 10 (6-14) 10 (6-14) Blood Urea Nitrogen 11 mg/dL (8-26) 8 mg/dL (8-26) Creatinine 0.9 mg/dL (0.7-1.3) 0.8 mg/dL (0.7-1.3) Estimated GFR (Cockcroft-Gault) 103.8 118.9 BUN/Creatinine Ratio 12 (6-20) 10 (6-20) Glucose Level 98 mg/dL (70-99) 87 mg/dL (70-99) Calcium Level 9.0 mg/dL (8.5-10.1) 8.9 mg/dL (8.5-10.1) Magnesium Level 2.2 mg/dL (1.8-2.4) Total Bilirubin 0.6 mg/dL (0.2-1.0) 0.7 mg/dL (0.2-1.0) Aspartate Amino Transf (AST/SGOT) 16 U/L (15-37) 18 U/L (15-37) Alanine Aminotransferase (ALT/SGPT) 17 U/L (16-63) 15 U/L (16-63) Alkaline Phosphatase 120 U/L (46-116) 101 U/L (46-116) Troponin I Quantitative < 0.017 ng/mL (0.000-0.055) < 0.017 ng/mL (0.000-0.055) < 0.017 ng/mL (0.000-0.055) LN-Gbi-R-Type Natriuretic Peptide 58 pg/mL (0-124) Total Protein 7.7 g/dL (6.4-8.2) 6.4 g/dL (6.4-8.2) Albumin 3.8 g/dL (3.4-5.0) 3.3 g/dL (3.4-5.0) Albumin/Globulin Ratio 1.0 (1.0-1.7) 1.1 (1.0-1.7) Triglycerides Level 83 mg/dL (0-150) Cholesterol Level 160 mg/dL (0-200) LDL Cholesterol, Calculated 97 mg/dL (0-100) VLDL Cholesterol, Calculated 17 mg/dL (0-40) Non-HDL Cholesterol Calculated 114 mg/dL (0-129) HDL Cholesterol 46 mg/dL (40-60) Cholesterol/HDL Ratio 3.5 Thyroid Stimulating Hormone (TSH) 1.234 uIU/mL (0.358-3.74) Iron Level 62 ug/dL (65-175) Total Iron Binding Capacity 299 ug/dL (250-450) Iron Saturation 21 % (15-34) Problem List Problems Medical Problems: (1) Chest pain Status: Acute (2) Fatigue Status: Acute Assessment/Plan pain seems unlikely related to liver EGD reviewed will have Dr Yanez review, however no surgical plans RENE YANEZ MD 07/16/18 0260: SURGICAL PROGRESS NOTE Assessment/Plan pt seen, interviewed and examined don't think his chronic diaphragmatic eventration (CXR 2013) is source of his complaints no surgical recs d/w Mr Venerable Thanks for consult can be dismissed from a surgical standpoint will sign off RACHEL MONTANEZ APRN Jul 16, 2018 12:29 RENE YANEZ MD Jul 16, 2018 13:45
--- NOTE | 2018-07-16 13:21 | PDOC ---
DARÍO LUGO MERCHANDISE MARKER 07/16/18 1321: CARDIO Progress Notes Date and Time Date of Service 07/16/2018 Time of Evaluation 1300 Subjective Subjective: No Chest Pain, No shortness of breath, No Palpitations, Other (still has some abd pain) Vitals Vitals Vital Signs Date Time Temp Pulse Resp B/P (MAP) Pulse Ox O2 Delivery O2 Flow Rate FiO2 07/16/18 11:27 97.9 76 18 125/77 (93) 96 Room Air 97.9 07/16/18 07:48 2.0 Weight Weight [ ] Input and Output Intake and Output Intake and Output 07/16/18 06:59 Intake Total 120 ml Balance 120 ml Intake Oral 120 ml # Voids 3 Physical Exam HEENT: Neck Supple W Full Motion Chest: Symmetric LUNGS: Clear to Auscultation Heart: RRR (SR) Abdomen: Soft N/T Extremities: No Edema, No Calf Tenderness Neurology: alert, oriented, follow commands Assessment Assessment 1. Chest pain: LHC revealed nonobstructive CAD. Possibly GI, EGD revealed gastric diverticulum 2. Multifocal PVCs with presyncopal spells: less PVC overnight. EF and WM nml 3. CAD 4. HTN: controlled 5. HLP: controlled 6. Metabolic syndrome 7. Chronic urticaria: generalized 8. Possible IV contrast allergy 9. Hypokalemia 10. Abdominal pain: GI following, post EGD as noted above Recommendations 1. MCOT as an outpt and will reeval need for BB pending PVC burden and differentiate any further arrhythmias for any potential EP referral. 2. ASA. Continue with secondary prevention and norvasc. 4. BMP. replace K as warranted. Follow up in office as scheduled TIMA HOWARD MD 07/16/18 1406: CARDIO Progress Notes Assessment Assessment Patient seen and examined. Agree with [employer] OFFICER's assessment and plan. Cardiac catheterization yesterday showed nonobstructive coronary artery disease Telemetry did not show any significant arrhythmias Plan for event monitor as an outpatient Continue management of abdominal pain per GI team DARÍO LUGO APRN Jul 16, 2018 13:21 TIMA HOWARD MD Jul 16, 2018 14:06
--- NOTE | 2018-07-16 13:49 | PDOC3 ---
Discharge Summary Visit Information Date of Admission: Jul 14, 2018 Date of Discharge: Jul 16, 2018 Final Diagnosis 1. Angina, chest pain, LHC revealed nonobstructive CAD. 2. chest pain, then though to be GERD pain, EGD was benign 3. Multifocal PVCs with presyncopy 4. CAD, htn, lipids 5. . Hypokalemia Problems Medical Problems: (1) Chest pain Status: Acute (2) Fatigue Status: Acute Brief Hospital Course Allergies Allergies Coded Allergies Type Severity Reaction Last Updated Verified lisinopril Allergy Severe angioedema 10/06/14 Yes Penicillins Allergy Intermediate 10/06/14 Yes Sulfa (Sulfonamide Antibiotics) Allergy Intermediate 10/06/14 Yes codeine Allergy Intermediate rash 10/06/14 Yes Vital Signs Vital Signs Date Time Temp Pulse Resp B/P (MAP) Pulse Ox O2 Delivery O2 Flow Rate FiO2 07/16/18 11:27 97.9 76 18 125/77 (93) 96 Room Air 97.9 07/16/18 07:48 2.0 Lab Results Laboratory Tests Test 07/14/18 15:36 07/14/18 21:15 07/15/18 04:00 07/15/18 11:07 White Blood Count 6.4 x10^3/uL (4.0-11.0) 7.2 x10^3/uL (4.0-11.0) Red Blood Count 5.57 x10^6/uL (4.30-5.70) 4.99 x10^6/uL (4.30-5.70) Hemoglobin 14.5 g/dL (13.0-17.5) 13.2 g/dL (13.0-17.5) Hematocrit 42.4 % (39.0-53.0) 38.6 % (39.0-53.0) Mean Corpuscular Volume 76 fL (79-100) 77 fL (79-100) Mean Corpuscular Hemoglobin 26 pg (25-35) 26 pg (25-35) Mean Corpuscular Hemoglobin Concent 34 g/dL (31-37) 34 g/dL (31-37) Red Cell Distribution Width 15.1 % (11.5-14.5) 15.0 % (11.5-14.5) Platelet Count 345 x10^3/uL (140-400) 318 x10^3/uL (140-400) Neutrophils (%) (Auto) 42 % (31-73) 53 % (31-73) Lymphocytes (%) (Auto) 35 % (24-48) 28 % (24-48) Monocytes (%) (Auto) 11 % (0-9) 9 % (0-9) Eosinophils (%) (Auto) 11 % (0-3) 10 % (0-3) Basophils (%) (Auto) 0 % (0-3) 1 % (0-3) Neutrophils # (Auto) 2.7 x10^3uL (1.8-7.7) 3.8 x10^3uL (1.8-7.7) Lymphocytes # (Auto) 2.2 x10^3/uL (1.0-4.8) 2.0 x10^3/uL (1.0-4.8) Monocytes # (Auto) 0.7 x10^3/uL (0.0-1.1) 0.6 x10^3/uL (0.0-1.1) Eosinophils # (Auto) 0.7 x10^3/uL (0.0-0.7) 0.7 x10^3/uL (0.0-0.7) Basophils # (Auto) 0.0 x10^3/uL (0.0-0.2) 0.1 x10^3/uL (0.0-0.2) Sodium Level 140 mmol/L (136-145) 141 mmol/L (136-145) Potassium Level 3.1 mmol/L (3.5-5.1) 3.3 mmol/L (3.5-5.1) Chloride Level 102 mmol/L (98-107) 105 mmol/L (98-107) Carbon Dioxide Level 28 mmol/L (21-32) 26 mmol/L (21-32) Anion Gap 10 (6-14) 10 (6-14) Blood Urea Nitrogen 11 mg/dL (8-26) 8 mg/dL (8-26) Creatinine 0.9 mg/dL (0.7-1.3) 0.8 mg/dL (0.7-1.3) Estimated GFR (Cockcroft-Gault) 103.8 118.9 BUN/Creatinine Ratio 12 (6-20) 10 (6-20) Glucose Level 98 mg/dL (70-99) 87 mg/dL (70-99) Calcium Level 9.0 mg/dL (8.5-10.1) 8.9 mg/dL (8.5-10.1) Magnesium Level 2.2 mg/dL (1.8-2.4) Total Bilirubin 0.6 mg/dL (0.2-1.0) 0.7 mg/dL (0.2-1.0) Aspartate Amino Transf (AST/SGOT) 16 U/L (15-37) 18 U/L (15-37) Alanine Aminotransferase (ALT/SGPT) 17 U/L (16-63) 15 U/L (16-63) Alkaline Phosphatase 120 U/L (46-116) 101 U/L (46-116) Troponin I Quantitative < 0.017 ng/mL (0.000-0.055) < 0.017 ng/mL (0.000-0.055) < 0.017 ng/mL (0.000-0.055) AT-Qes-T-Type Natriuretic Peptide 58 pg/mL (0-124) Total Protein 7.7 g/dL (6.4-8.2) 6.4 g/dL (6.4-8.2) Albumin 3.8 g/dL (3.4-5.0) 3.3 g/dL (3.4-5.0) Albumin/Globulin Ratio 1.0 (1.0-1.7) 1.1 (1.0-1.7) Triglycerides Level 83 mg/dL (0-150) Cholesterol Level 160 mg/dL (0-200) LDL Cholesterol, Calculated 97 mg/dL (0-100) VLDL Cholesterol, Calculated 17 mg/dL (0-40) Non-HDL Cholesterol Calculated 114 mg/dL (0-129) HDL Cholesterol 46 mg/dL (40-60) Cholesterol/HDL Ratio 3.5 Thyroid Stimulating Hormone (TSH) 1.234 uIU/mL (0.358-3.74) Iron Level 62 ug/dL (65-175) Total Iron Binding Capacity 299 ug/dL (250-450) Iron Saturation 21 % (15-34) Brief Hospital Course Mr. Henry is a 63 old admit with Chest pain, sx of angina or GERD, r.o acs EGD done on 07/16. no acute, no ulceration, not much explantion for symptoms CV team to plan MCOT as an outpt and will reeval need for BB pending PVC burden and differentiate any further arrhythmias for any potential EP referral. Discharge Information Condition at Discharge: Improved Follow Up: Weeks Disposition/Orders: D/C to Home Scheduled Amlodipine Besylate (Amlodipine Besylate) 10 Mg Tablet, 10 MG PO DAILY for htn, (Reported) Entered as Reported by: Yusuf Mariano on 07/14/182026 Last Taken: UNKNOWN on Unknown Date & Time Last Action: Continued on 07/14/182026 by Yusuf Mariano Aspirin (Aspirin) 325 Mg Tablet, 325 MG PO DAILY for stroke prevention, (Reported) Entered as Reported by: Yusuf Mariano on 07/14/182026 Last Taken: UNKNOWN on Unknown Date & Time Last Action: Continued on 07/14/182026 by Yusuf Mariano Atorvastatin Calcium (Atorvastatin Calcium) 20 Mg Tablet, 20 MG PO HS for FOR CHOLESTEROL, #30 Ref 0 (Reported) Entered as Reported by: Yusuf Mariano on 07/14/182026 Last Taken: UNKNOWN on Unknown Date & Time Last Action: Continued on 07/14/182026 by Yusuf Mariano Fexofenadine Hcl (Fexofenadine Hcl) 180 Mg Tablet, 180 MG PO DAILY for allergy, (Reported) Entered as Reported by: Yusuf Marinao on 07/14/182026 Last Taken: UNKNOWN on Unknown Date & Time Last Action: Converted on 07/14/182026 by Yusuf Mariano Hydroxyzine Hcl (Hydroxyzine Hcl) 25 Mg Tablet, 25 MG PO QID for anxiety, (Reported) Entered as Reported by: Yusuf Mariano on 07/14/182026 Last Taken: UNKNOWN on Unknown Date & Time Last Action: Continued on 07/14/182026 by Yusuf Mariano Triamterene/Hydrochlorothiazid (Triamterene-Hctz 37.5-25 Mg Cp) 1 Each Capsule, 1 CAP PO DAILY for fluid control, #30 Ref 5 (Reported) Entered as Reported by: Yusuf Mariano on 07/14/182026 Last Taken: UNKNOWN on Unknown Date & Time Last Action: Converted on 07/14/182026 by Yusuf Mariano Scheduled PRN Hydrocodone/Acetaminophen (Hydrocodone-Acetamin 5-325 mg) 1 Each Tablet, 1 EACH PO PRN Q4HRS PRN for PAIN, (Reported) Entered as Reported by: Yusuf Mariano on 07/14/182026 Last Taken: UNKNOWN on Unknown Date & Time Last Action: Continued on 2026 by Yusuf Mariano Patient Instructions Patient Instructions f/u cardiology chest pain could be from PVC , or spasm angina time > 30 min face to face CHAR NAJERA MD Jul 16, 2018 13:49
[2018-07-16 14:26] LABS: CALCIUM 9.7 mg/dL (8.5-10.1); CREATININE 0.9 mg/dL (0.7-1.3); GFR 103.8; POTASSIUM 3.9 mmol/L (3.5-5.1)
[2018-07-16 14:49] VITALS: BP 122/82
[2018-07-16] MEDS ORDERED: Pantoprazole PO (15:36)
--- NOTE | 2018-07-16 16:30 | NUR ---
Discharge Note: JAYASHREE JONES NARDIN Discharge instructions and discharge home medications reviewed with Patient and a copy given. All questions have been answered and understanding verbalized. Prescriptions given to patient. The following instructions and handouts were given: chest pain and post catheterization care Discontinued lines and drains: Peripheral IV intact. Patient discharged to Home or Self Care with Self via Wheelchair
== END 2018-07-16 16:30 | disposition home or self-care (01) | DRG 287 ==
LOC: ER 15:22 → 2 NORTH 15:50
PROVIDERS: ADMIT Internal Medicine; ATTEND Internal Medicine
PROC: 4A023N7 Measurement of Cardiac Sampling and Pressure, Left Heart, Percutaneous Approach (ICD-10-PCS; principal; 2018-07-15)
PROC: B2111ZZ Fluoroscopy of Multiple Coronary Arteries using Low Osmolar Contrast (ICD-10-PCS; 2018-07-15)
PROC: B2151ZZ Fluoroscopy of Left Heart using Low Osmolar Contrast (ICD-10-PCS; 2018-07-15)
PROC: 0DJ08ZZ Inspection of Upper Intestinal Tract, Via Natural or Artificial Opening Endoscopic (ICD-10-PCS; 2018-07-16)
DX: I25.119 Atherosclerotic heart disease of native coronary artery with unspecified angina pectoris (principal); J93.83 Other pneumothorax; E78.00 Pure hypercholesterolemia, unspecified; J45.909 Unspecified asthma, uncomplicated; E78.5 Hyperlipidemia, unspecified; I10 Essential (primary) hypertension; E87.6 Hypokalemia; G47.33 Obstructive sleep apnea (adult) (pediatric); K57.30 Diverticulosis of large intestine without perforation or abscess without bleeding; M19.90 Unspecified osteoarthritis, unspecified site; I49.3 Ventricular premature depolarization; E88.81 Metabolic syndrome and other insulin resistance; L50.9 Urticaria, unspecified; K31.4 Gastric diverticulum; K21.9 Gastro-esophageal reflux disease without esophagitis; Z98.1 Arthrodesis status; Z88.0 Allergy status to penicillin; Z88.2 Allergy status to sulfonamides; Z88.8 Allergy status to other drugs, medicaments and biological substances; Z79.82 Long term (current) use of aspirin; Z80.9 Family history of malignant neoplasm, unspecified; Z82.49 Family history of ischemic heart disease and other diseases of the circulatory system
CPT/HCPCS: 36415; 43235; 71046; 71275; 80048; 80053; 80061; 83540; 83550; 83735; 83880; 84443; 84484; 85025; 93005; 93306; 93458; 96361; 96372; 96374; 96375; 99152; 99153; C1769; C1892; J1200; J1644; J1650; J2001; J2250; J2270; J2704; J2930; J3010; J3490; J7030; J7120; Q9967; 99285-25

== ENCOUNTER 2018-08-21 23:36 | Emergency (ER) | payer BC ==
[~2018-08-21] VITALS: Ht 177.8 cm; Wt 90.7 kg
[~2018-08-21 23:36] MED LIST changes: +AMLO10TA8 PO; +ASPI325T8 PO; +ATOR20TA58 PO; +FEXO180T16 PO; +HYDR-2759 PO; +HYDR25TA PO; +Pantoprazole PO; +TRIA1CAP3 PO
[2018-08-21 23:50] VITALS: BP 132/86
[2018-08-22] MEDS ORDERED: PRED50TA PO (00:05)
[2018-08-22] MEDS ORDERED: VALA1000 PO (00:05)
--- NOTE | 2018-08-22 00:06 | PHYS DOC ---
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 The patient states that the rash is painful. Rates the pain as 7 out of 10 in severity. The patient tried ibuprofen but has not been helping. Review of Systems Review of Systems Constitutional: Denies fever or chills [] Eyes: Denies change in visual acuity, redness, or eye pain [] HENT: Denies nasal congestion or sore throat [] Respiratory: Denies cough or shortness of breath [] Cardiovascular: No additional information not addressed in HPI [] GI: Denies abdominal pain, nausea, vomiting, bloody stools or diarrhea [] : Denies dysuria or hematuria [] Musculoskeletal: Denies back pain or joint pain [] Integument: Has rash on right side of chest. Neurologic: Denies headache, focal weakness or sensory changes [] Endocrine: Denies polyuria or polydipsia [] Complete systems were reviewed and found to be within normal limits, except as documented in this note. Allergies Allergies Allergies Coded Allergies Type Severity Reaction Last Updated Verified lisinopril Allergy Severe angioedema 10/06/14 Yes Penicillins Allergy Intermediate 10/06/14 Yes Sulfa (Sulfonamide Antibiotics) Allergy Intermediate 10/06/14 Yes codeine Allergy Intermediate rash 10/06/14 Yes Physical Exam Physical Exam Constitutional: Well developed, well nourished, no acute distress, non-toxic appearance. [] HENT: Normocephalic, atraumatic, bilateral external ears normal, oropharynx moist, no oral exudates, nose normal. [] Eyes: PERRLA, EOMI, conjunctiva normal, no discharge. [] Neck: Normal range of motion, no tenderness, supple, no stridor. [] Cardiovascular:Heart rate regular rhythm, no murmur [] Lungs & Thorax: Bilateral breath sounds clear to auscultation [] Abdomen: Bowel sounds normal, soft, no tenderness, no masses, no pulsatile masses. [] Skin: vesicular rash on right side of chest following dermatome. Back: No tenderness, no CVA tenderness. [] Extremities: No tenderness, no cyanosis, no clubbing, ROM intact, no edema. [] Neurologic: Alert and oriented X 3, normal motor function, normal sensory function, no focal deficits noted. [] Psychologic: Affect normal, judgement normal, mood normal. [] Current Patient Data Vital Signs Vital Signs Date Time Temp Pulse Resp B/P (MAP) Pulse Ox O2 Delivery O2 Flow Rate FiO2 08/21/18 23:50 98.6 84 16 132/86 (101) 100 Room Air 98.6 EKG EKG [] Radiology/Procedures Radiology/Procedures [] Course & Med Decision Making Course & Med Decision Making Pertinent Labs and Imaging studies reviewed. (See chart for details) Appears to be shingles. Will give [place], Dexamethasone and Valtrex in ER. Will send home on Valtrex and Prednisone. Dragon Disclaimer Dragon Disclaimer This electronic medical record was generated, in whole or in part, using a voice recognition dictation system. Departure Departure Impression: Primary Impression: Shingles Disposition: 01 HOME, SELF-CARE Condition: STABLE Referrals: SANDRA NELSON MD (PCP) Patient Instructions: Shingles Additional Instructions: Thank you for visiting [facility]. We appreciate you trusting us with your care. If any additional problems come up don't hesitate to return to visit us. Please follow up with your primary care provider so they can plan additional care if needed and know about the problem that you had. If symptoms worsen come back to the Emergency Department. Any concerning symptoms that start such as chest pain, shortness of air, weakness or numbness on one side of the body, running high fevers or any other concerning symptoms return to the ER. Please fill your medications at any pharmacy and follow the prescription instructions. Scripts Prednisone (PREDNISONE) 50 Mg Tablet 1 TAB PO DAILY for 5 Days, #5 TAB Prov: MARY MCMAHON APRN 08/22/18 Valacyclovir Hcl (VALACYCLOVIR) 1,000 Mg Tablet 1 TAB PO TID for 7 Days, #21 TAB Prov: MARY MCMAHON APRN 08/22/18 Problem Qualifiers Primary Impression: Shingles Herpes zoster complications: without complications Qualified Codes: B02.9 - Zoster without complications MARY MCMAHON APRN Aug 22, 2018 00:05
[2018-08-22] MEDS ORDERED: valACYclovir 500 MG TABLET. PO ONE (00:30)
[2018-08-22] MEDS ORDERED: HYDROcodone/APAP 5/325MG 1 TAB TABLET PO ONE (00:30)
[2018-08-22] MEDS ORDERED: DEXAMETHASONE 4 MG TABLET PO ONE (00:30)
== END 2018-08-22 00:35 | disposition home or self-care (01) ==
LOC: ER 23:36
DX: B02.9 Zoster without complications (principal); E78.00 Pure hypercholesterolemia, unspecified; J45.909 Unspecified asthma, uncomplicated; I10 Essential (primary) hypertension; Z88.0 Allergy status to penicillin; Z88.5 Allergy status to narcotic agent; Z88.2 Allergy status to sulfonamides; Z88.8 Allergy status to other drugs, medicaments and biological substances
CPT/HCPCS: 99284; J8540

== ENCOUNTER 2018-09-12 12:54 | Emergency (ER) | payer BC ==
[~2018-09-12] VITALS: Ht 177.8 cm; Wt 93.0 kg
[~2018-09-12 12:54] MED LIST changes: +PRED50TA PO; +VALA1000 PO
[2018-09-12] MEDS ORDERED: METH-37 PO (13:25)
[2018-09-12] MEDS ORDERED: NAPR-514 PO (13:25)
--- NOTE | 2018-09-12 13:25 | PHYS DOC ---
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 He states he may have injured it while he was at work. It's been worse over the last couple days. He states it stays isolated in his lower back. He denies any radicular symptoms. Denies any bowel or bladder dysfunction. He denies any saddle paresthesia. He states the pain is severe and made better with sitting still. Trying to stand up straight causes the most pain.[] Review of Systems Review of Systems Constitutional: Denies fever or chills [] Eyes: Denies change in visual acuity, redness, or eye pain [] HENT: Denies nasal congestion or sore throat [] Respiratory: Denies cough or shortness of breath [] Cardiovascular: No additional information not addressed in HPI [] GI: Denies abdominal pain, nausea, vomiting, bloody stools or diarrhea [] : Denies dysuria or hematuria [] Musculoskeletal: Per history of present illness[] Integument: Denies rash or skin lesions [] Neurologic: Denies headache, focal weakness or sensory changes [] Endocrine: Denies polyuria or polydipsia [] All other systems were reviewed and found to be within normal limits, except as documented in this note. Allergies Allergies Allergies Coded Allergies Type Severity Reaction Last Updated Verified lisinopril Allergy Severe angioedema 10/06/14 Yes Penicillins Allergy Intermediate 10/06/14 Yes Sulfa (Sulfonamide Antibiotics) Allergy Intermediate 10/06/14 Yes codeine Allergy Intermediate rash 10/06/14 Yes Physical Exam Physical Exam Constitutional: Well developed, well nourished, mild distress, non-toxic appearance. [] HENT: Normocephalic, atraumatic, bilateral external ears normal, oropharynx mois t, no oral exudates, nose normal. [] Eyes: PERRLA, EOMI, conjunctiva normal, no discharge. [] Neck: Normal range of motion, no tenderness, supple, no stridor. [] Cardiovascular:Heart rate regular rhythm, no murmur [] Lungs & Thorax: Bilateral breath sounds clear to auscultation [] Abdomen: Bowel sounds normal, soft, no tenderness, no masses, no pulsatile masses. [] Skin: Warm, dry, no erythema, no rash. [] Back: Tender to palp over the left SI joint there is some lumbar paraspinal mu scle spasm left greater than right is no midline vertebral tenderness. [] Extremities: No tenderness, no cyanosis, no clubbing, ROM intact, no edema. [] Neurologic: Alert and oriented X 3, normal motor function, normal sensory function, no focal deficits noted. [] Psychologic: Affect normal, judgement normal, mood normal. [] EKG EKG [] Radiology/Procedures Radiology/Procedures [] Course & Med Decision Making Course & Med Decision Making Pertinent Labs and Imaging studies reviewed. (See chart for details) [] Dragon Disclaimer Dragon Disclaimer This electronic medical record was generated, in whole or in part, using a voice recognition dictation system. Departure Departure Impression: Primary Impression: Lumbar back sprain Disposition: HOME, SELF-CARE Condition: STABLE Referrals: SANDRA NELSON MD (PCP) Patient Instructions: Back Pain, Adult Additional Instructions: Take medication as directed. Return to the emergency department with any new or concerning symptoms Scripts Methocarbamol (ROBAXIN) 500 Mg Tablet 1 TAB PO Q12HR for muscle spasm, #30 TAB Prov: JONN PERALTA DO 09/12/18 Naproxen (NAPROXEN) 500 Mg Tablet 1 TAB PO BID PRN for PAIN, #30 TAB 1 Refill Prov: JONN PERALTA DO 09/12/18 Problem Qualifiers Primary Impression: Lumbar back sprain Encounter type: initial encounter Qualified Codes: S33.5XXA - Sprain of ligaments of lumbar spine, initial encounter JONN PERALTA DO Sep 12, 2018 13:25
[2018-09-12] MEDS ORDERED: ORPHENADRINE CITRATE 60 MG/2 ML VIAL. IM ONE (13:45)
[2018-09-12] MEDS ORDERED: KETOROLAC 60 MG/2 ML VIAL. IM ONE (13:45)
[2018-09-12 14:00] VITALS: BP 120/88
== END 2018-09-12 14:07 | disposition home or self-care (01) ==
LOC: ER 12:54
DX: S33.5XXA Sprain of ligaments of lumbar spine, initial encounter (principal); X58.XXXA Exposure to other specified factors, initial encounter; Y93.89 Activity, other specified; Y92.89 Other specified places as the place of occurrence of the external cause; Y99.0 Civilian activity done for income or pay; J45.909 Unspecified asthma, uncomplicated; E78.00 Pure hypercholesterolemia, unspecified; I10 Essential (primary) hypertension; Z88.0 Allergy status to penicillin; Z88.2 Allergy status to sulfonamides; Z88.5 Allergy status to narcotic agent; Z88.8 Allergy status to other drugs, medicaments and biological substances
CPT/HCPCS: 96372; 99284; J1885; J2360

== ENCOUNTER → 2019-04-25 | Outpatient (CLI) | payer BC ==
[~2019-04-25] MED LIST changes: +METH-37 PO; +NAPR-514 PO; +SIMV40TA18 PO; -SIMV40TA3 PO; -VALA1000 PO; +VALA10008 PO
--- NOTE | 2019-04-25 17:26 | KCIC ---
3 views right great toe HISTORY: Pain after stubbed one month ago infectious process without odor AP lateral oblique comminuted views of the great toe The visualized osseous structures appear normal. There is no lytic destructive changes. IMPRESSION: No acute bony abnormality identified. Electronically signed by: Rolan Chopra III, MD (04/25/2019 5:23 PM) [id number]
== END | disposition home or self-care (01) ==
LOC: KCIC 15:39
PROVIDERS: ATTEND Internal Medicine
DX: S99.921A Unspecified injury of right foot, initial encounter (principal); X58.XXXA Exposure to other specified factors, initial encounter; Y93.89 Activity, other specified; Y92.89 Other specified places as the place of occurrence of the external cause; Y99.8 Other external cause status
CPT/HCPCS: 73660

== ENCOUNTER → 2020-01-13 | Outpatient (CLI) | payer OTHER ==
[~2020-01-13] MED LIST changes: +AMLO-187 PO; -AMLO10TA8 PO
--- NOTE | 2020-01-13 16:45 | CARD ---
MR#: [id number] Date of Study: 01/13/2020 Ordering Physician: SONAL LEIVA, Referring Physician: SONAL LEIVA Tech: Velma Aggarwal [facility] APPROVED REPORT EXAM: Two-dimensional and M-mode echocardiogram with Doppler and color Doppler. Other Information Quality : GoodHR: 74bpm Rhythm : NSR INDICATION Abnormal ECG LLE swelling RISK FACTORS Hypertension Hyperlipidemia 2D DIMENSIONS Left Atrium(2D)3.6 (1.6-4.0cm)IVSd1.0 (0.7-1.1cm) Aortic Root(2D)3.0 (2.0-3.7cm)LVDd4.7 (3.9-5.9cm) LVOT Diameter2.2 (1.8-2.4cm)PWd0.9 (0.7-1.1cm) LVDs2.9 (2.5-4.0cm)FS (%) 38.1 % SV70.6 mlLVEF(%)68.3 (>50%) Aortic Valve AoV Peak Calderon.137.7cm/Yfn Peak GR.7.7mmHg LVOT Peak Calderon.101.8cm/sAVA (VMAX)2.73cm2 Mitral Valve MV E Lkfpptld80.5cm/sMV DECEL [id number] MV A Xwnqzqci10.3cm/sE/A Ratio1.0 MV A Oshpgxxj78fm TDI E/Lateral E'7.5 Pulmonary Valve PV Peak Zrstmino70.5cm/s Tricuspid Valve TR P. Rjiqruhz532go/sTR Peak Gr.24mmHg Pulmonary Vein S1 Vwjpgdub19.7cm/sD2 Gdlstxrr05.1cm/s PVa rwaxaehx72efks LEFT VENTRICLE The left ventricle is normal size. There is normal left ventricular wall thickness. The left ventricu lar systolic function is normal and the ejection fraction is within normal range. The EF is 60%. No r egional wall motion abnormalities noted. The left ventricular diastolic function is normal. No left v entricle thrombus noted on this study. There is no ventricular septal defect visualized. There is no left ventricular aneurysm. There is no mass noted in the left ventricle. RIGHT VENTRICLE The right ventricle is normal size. There is normal right ventricular wall thickness. The right ventr icular systolic function is normal. ATRIA The left atrium size is normal. The right atrium size is normal. The interatrial septum is intact wit h no evidence for an atrial septal defect or patent foramen ovale as noted on 2-D or Doppler imaging. AORTIC VALVE The aortic valve is normal in structure and function. The aortic valve is mildly calcified. Trace aor tic regurgitation is present. There is no aortic valvular stenosis. There is no aortic valvular veget ation. MITRAL VALVE The mitral valve is normal in structure and function. There is no evidence of mitral valve prolapse. There is no mitral valve stenosis. Doppler and Color-flow revealed trace to mild mitral regurgitation . TRICUSPID VALVE The tricuspid valve is normal in structure and function. Doppler and Color Flow revealed mild tricusp id regurgitation. There is no tricuspid valve prolapse or vegetation. There is no tricuspid valve leah nosis. PULMONIC VALVE Trace pulmonic regurgitation There is no pulmonic valvular stenosis. GREAT VESSELS The aortic root is normal in size. The ascending aorta is upper normal in size. IVC is normal PERICARDIAL EFFUSION There is no evidence of significant pericardial effusion. Critical Notification Critical Value: No <Conclusion> The left ventricular systolic function is normal and the ejection fraction is within normal range. Th e EF is 60%. No regional wall motion abnormalities noted. Signed by : Sanju Egan, Electronically Approved : 01/13/2020 15:57:06
--- NOTE | 2020-01-13 16:46 | RAD ---
VENOUS LOWER EXTREMITY LEFT History: Pain. Comparison: None. Discussion: Multiple longitudinal and transverse high resolution real-time images of the venous system of left lower extremity were obtained with color and Doppler sampling. The common femoral, superficial femoral, popliteal and proximal calf veins are all patent and demonstrate normal flow and compressibility. Normal respiratory phasicity and augmentation is present. Complex cystic structure within the popliteal fossa with adjacent subcutaneous edema. Impression: 1. No evidence of deep vein thrombosis. 2. Complex cystic structure within the popliteal fossa with adjacent subcutaneous edema, may represent ruptured popliteal cyst or hematoma given history of trauma. If persistent clinical concern, recommend ultrasound follow-up. Electronically signed by: Nishant Oglesby DO (01/13/2020 4:00 PM) [id number]
== END ==
LOC: ECHO 14:05
PROVIDERS: ATTEND Physician Assistant
DX: I08.3 Combined rheumatic disorders of mitral, aortic and tricuspid valves (principal); R60.1 Generalized edema; M79.662 Pain in left lower leg
CPT/HCPCS: 93306; 93971

== ENCOUNTER 2021-04-09 22:49 | Emergency (ER) | payer BC ==
[~2021-04-09] VITALS: Ht 180.3 cm; Wt 97.7 kg
[~2021-04-09 22:49] MED LIST changes: +FEXO-212 PO; -FEXO180T16 PO
[2021-04-09 22:51] VITALS: BP 140/85
[2021-04-09] MEDS: DEXAMETHASONE 4 MG TABLET PO ONE ×2 (23:28→23:34)
[2021-04-09] MEDS ORDERED: FAMOTIDINE 20 MG TABLET. PO ONE (23:45)
[2021-04-09] MEDS ORDERED: diphenhydrAMINE HCL 25 MG CAPSULE PO ONE (23:45)
--- NOTE | 2021-04-10 00:07 | PHYS DOC ---
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 No relief with Benadryl and cortisone cream. History of lisinopril angioedema that did not require any intubation. No history of anaphylaxis or intubation. Does not recall any new changes in lotions, perfumes, detergents, soaps, foods or medications. No foreign travel. Sleeps in same bed with his who is asymptomatic. Is vaccinated for COVID. Review of Systems: Review of Systems: Constitutional: Denies fever or chills. [] Eyes: Denies change in visual acuity. [] HENT: Denies nasal congestion or sore throat. [] Respiratory: Denies cough or shortness of breath. [] Cardiovascular: Denies chest pain or edema. [] GI: Denies abdominal pain, nausea, vomiting, or diarrhea. [] : Denies dysuria or hematuria Musculoskeletal: Denies back pain or joint pain. [] Integument: Denies diaphoresis or skin sloughing Neurologic: Denies headache, focal weakness or sensory changes. [] Endocrine: Denies polyuria or polydipsia. [] Lymphatic: Denies swollen glands. [] Psychiatric: Denies depression or anxiety. [] Heart Score: C/O Chest Pain: No Risk Factors: Risk Factors: DM, Current or recent (<one month) smoker, HTN, HLP, family history of CAD, obesity. Risk Scores: Score 0 - 3: 2.5% MACE over next 6 weeks - Discharge Home Score 4 - 6: 20.3% MACE over next 6 weeks - Admit for Clinical Observation Score 7 - 10: 72.7% MACE over next 6 weeks - Early Invasive Strategies Current Medications: Current Medications Medications (Trade) Dose Ordered Sig/Cj Start Time Stop Time Status Last Admin Dose Admin Dexamethasone (Decadron) 10 mg 1X ONCE 04/09/21 23:45 04/09/21 23:46 DC 04/09/21 23:34 10 MG Diphenhydramine HCl (Benadryl) 25 mg 1X ONCE 04/09/21 23:45 04/09/21 23:46 DC 04/09/21 23:28 25 MG Famotidine (Pepcid) 20 mg 1X ONCE 04/09/21 23:45 04/09/21 23:46 DC 04/09/21 23:28 20 MG Allergies: Allergies: Allergies Coded Allergies Type Severity Reaction Last Updated Verified lisinopril Allergy Severe angioedema 10/06/14 Yes Penicillins Allergy Intermediate 10/06/14 Yes Sulfa (Sulfonamide Antibiotics) Allergy Intermediate 10/06/14 Yes codeine Allergy Intermediate rash 10/06/14 Yes Physical Exam: PE: Constitutional: Well developed, well nourished, no acute distress, non-toxic appearance. HENT: Normocephalic, atraumatic, normal speech, controlling secretions, Eyes: Pupils equal and reactive, EOMI, conjunctiva normal, no discharge, Uvula midline with no oropharyngeal edema or erythema, no rash in mucous membranes Neck: Normal range of motion, supple, Cardiovascular: S1/2 present, irregular rhythm Lungs & Thorax: Speaking in full sentences, bilateral equal chest rise, no tachypnea or increased work of breathing Abdomen: soft, no tenderness, Skin: Warm, dry, negative Nikolsky sign, multiple areas of raised erythema over her forehead, base of scalp, neck, forearms, lower chest, entire abdomen and upper buttocks, cannot appreciate any interdigital lesions in hands Back: No tenderness, no CVA tenderness. [] Extremities: No tenderness, no cyanosis, no lower extremity edema Neurologic: Alert and oriented X 3, normal motor function, normal sensory function, no focal deficits noted. [] Psychologic: Affect normal, judgement normal, mood normal. [] Current Patient Data: Vital Signs: Vital Signs Date Time Temp Pulse Resp B/P (MAP) Pulse Ox O2 Delivery O2 Flow Rate FiO2 04/09/21 22:51 97.4 96 20 140/85 (103) 95 Room Air 97.4 EKG: EKG: [] Radiology/Procedures: Radiology/Procedures: [] Course & Med Decision Making: Course & Med Decision Making Pertinent Labs and Imaging studies reviewed. (See chart for details) Seen for acute allergic reaction well-appearing male with no signs or symptoms of anaphylaxis or angioedema. Will treat with steroids, Benadryl, Pepcid and recommend riyn-bes-jeuaxpa cortisone cream-do not put cream on face. Patient well-appearing with no extremity involvement, negative Nikolsky sign. Will dis charge home with strict ED return precautions were given for difficulties breathing, nausea, vomiting, worsening rash or speech changes. Encouraged urgent outpatient follow-up with PMD repeat evaluation in 2 to 3 days and consider allergy clinic for testing. Life-threatening processes were considered but are low suspicion at this time, given history, physical exam and ED workup. Pt was educated on all prescription medications and adverse effects. All patient's questions were answered and pt was stable at time of discharge. Life/limb-threatening differential includes but is not limited to, erythema multiforme, peoples-gabino syndrome, toxic epidermal necrolysis, staphylococcal scalded skin syndrome, necrotizing fasciitis/myositis/cellulitis, purpura fulmi nans, heparin or warfarin induced skin necrosis, angioedema, anaphylaxis drug rash, disseminated intravascular coagulation, disseminated gonococcal disease, vasculitis, septicemia, petechial disorder or coagulopathy, viral exanthem, Kawasaki's disease or life-threatening burn requiring burn center management or escharotomy. I have spoken with the patient and/or caregivers. I explained the patient's condition, diagnoses and treatment plan based on the information available to me at this time. I have answered the patient and/or caregiver's questions and addressed any concerns. The patient and/or caregivers have a good understanding of patient's diagnosis, condition and treatment plan as can be expected at this point. Vital signs have been stable. Patient's condition is stable and appropriate for discharge from the emergency department. Patient will pursue further outpatient evaluation with primary care physician or other designated or consulting physician as outlined in the discharge instructions. The patient and/or caregivers are agreeable to this plan of care and follow-up instructions have been explained in detail. The patient and/or caregivers have received these instructions in written form and have expressed an understanding of the discharge instructions. The patient and/or caregivers are aware that any significant change of condition or worsening of symptoms should prompt immediate return to this or the closest emergency department or call to [facility] Disclaimer: [place] Disclaimer: This electronic medical record was generated, in whole or in part, using a voice recognition dictation system. Departure Departure Impression: Primary Impression: Allergic reaction Disposition: HOME / SELF CARE / HOMELESS Referrals: GIA NESS MD (PCP) Follow-up with your primary care physician in 2 to 3 days for reevaluation Patient Instructions: Allergies, Generic, Allergy Skin Testing Additional Instructions: [facility]-for definitive management of allergies with skin testing [facility] Call for appointment [phone] [facility] [address] [facility], [address] (Address for directions and navigation systems: [address] [place] [address]) EMERGENCY DEPARTMENT GENERAL DISCHARGE INSTRUCTIONS Thank you for coming to [facility] Emergency Department (ED) today and trusting us with you care. We trust that you had a positive experience in our Emergency Department. If you wish to speak to the department management, you may call the Director at [phone]. YOUR FOLLOW UP INSTRUCTIONS ARE FOLLOWS: 1. Do you have a private Doctor? If you do not have a private doctor, please ask for a resource list of physicians or clinics that may be able to assist you with follow up care. 2. The Emergency Physicain has interpreted your x-rays. The X-Ray specialist will also review them. If there is a change in the findings, you will be notified in 48 hours when at all possible. 3. A lab test or culture has been done, your results will be reviewed and you will be notified if you need a change in treatment. ADDITIONAL INSTRUCTIONS AND INFORMATION: 1. Your care today has been supervised by a physician who is specially trained in emergency care. Many problems require more than one evaluation for a complete diagnosis and treatment. We recommend that you schedule your follow up appointment as recommended to ensure complete treatment of you illness or injury. If you are unable to obtain follow up care and continue to have a problem, or if your condition worsens, we recommend that you return to the ED. 2. We are not able to safely determine your condition over the phone nor are we able to give sound medical advice over the phone. For these safety reasons, if you call for medical advice we will ask you to come to the ED for further evaluation. 3. If you have any questions regarding these discharge instructions please call the ED at [phone]. SAFETY INFORMATION: In the interest of safety, wellness, and injury prevention; we encourage you to wear your sealbelt, if you smoke; quite smoking, and we encourage family to use a protective helmet for bicycling and other sporting events that present an increased risk for head injury. IF YOUR SYMPTOMS WORSEN OR NEW SYMPTOMS DEVELOP, OR YOU HAVE CONCERNS ABOUT YOUR CONDITION; OR IF YOUR CONDITION WORSENS WHILE YOU ARE WAITING FOR YOUR FOLLOW UP APPOINTMENT; EITHER CONTACT YOUR PRIMARY CARE DOCTOR, THE PHYSICIAN WHOSE NAME AND NUMBER YOU WERE GIVEN, OR RETURN TO THE ED IMMEDIATELY. Scripts Epinephrine (Epipen) 0.3 Mg/0.3 Ml Auto.injct 0.3 MG IM ONCE PRN for SHORTNESS OF BREATH for 1 Day, #1 SYR 1 Refill Use for facial/tongue swelling, shortness of breath, difficulties breathing Prov: JOSH LYLES DO 04/10/21 Famotidine (PEPCID) 20 Mg Tablet 20 MG PO BID for 7 Days, #14 TAB Prov: JOSH LYLES DO 04/10/21 Diphenhydramine Hcl (DIPHENHYDRAMINE HCL) 25 Mg Tablet 1 TAB PO Q6-8HRS PRN for ITCHING MDD 100mg for 10 Days, #20 TAB 0 Refills Prov: JOSH LYLES DO 04/10/21 Prednisone (PREDNISONE) 20 Mg Tablet 1 TAB PO DAILY for 5 Days, #5 TAB Prov: JOSH LYLES DO 04/10/21 JOSH LYLES DO Apr 10, 2021 00:07
[2021-04-10] MEDS ORDERED: DIPH25TA24 PO (00:17)
[2021-04-10] MEDS ORDERED: PRED20TA PO (00:17)
[2021-04-10] MEDS ORDERED: FAMO-63 PO (00:17)
[2021-04-10] MEDS ORDERED: EPIPEN0.3 MG/0.3 IM (00:18)
== END 2021-04-10 00:38 | disposition home or self-care (01) ==
LOC: ER 22:49
DX: T78.40XA Allergy, unspecified, initial encounter (principal); J45.909 Unspecified asthma, uncomplicated; E78.00 Pure hypercholesterolemia, unspecified; I10 Essential (primary) hypertension; I48.91 Unspecified atrial fibrillation; E78.5 Hyperlipidemia, unspecified; Z88.0 Allergy status to penicillin; Z88.2 Allergy status to sulfonamides; Z88.5 Allergy status to narcotic agent; Z88.6 Allergy status to analgesic agent
CPT/HCPCS: 99284; Q0163